=== PATIENT | male | born 1955 | race Caucasian/White ===

== ENCOUNTER → 2016-10-27 12:02 | Outpatient (CLI) | payer BC, MEDICARE ==
[2014-10-28 13:30] VITALS: BMI 28.1
[~2016-10-27 12:02] MED LIST: AMITRIPTYLINE100 MG PO; COUMADIN7.5 MG PO; FLOMAX0.4 MG PO; NEURONTIN600 MG PO; NUCYNTA75 MG PO; PRILOSEC20 MG PO; VESICARE10 MG PO
== END | disposition home or self-care (01) ==
LOC: D.US 12:02
DX: N50.89 Other specified disorders of the male genital organs (principal)

== ENCOUNTER 2017-01-13 06:10 | Day surgery (SDC) | payer BC, MEDICARE ==
[2017-01-12 11:10] LABS: HEMATOCRIT 41.7 % (42.0-54.0); HEMOGLOBIN 14.4 g/dL (13.5-17.5); MCH 32.2 pg (26.0-34.0); MCHC 34.5 g/dL (31.0-37.0); MCV 93.3 fL (80.0-100.0); RBC 4.47 10x6/uL (4.20-6.10); RDW 13.3 % (11.5-14.5); WBC 3.4 10x3/uL (4.8-10.8)
[2017-01-12 11:26] LABS: PROTIME 13.1 SECONDS (11.6-15.0)
[2017-01-12 11:36] LABS: CALCIUM 8.9 mg/dL (8.5-10.1); CARBON DIOXIDE 30.3 mmol/L (21.0-32.0); CREATININE - SERUM 1.2 mg/dL (0.6-1.3); POTASSIUM - SERUM 4.3 mmol/L (3.5-5.1)
[~2017-01-13] VITALS: Ht 172.7 cm; Wt 88.5 kg
[~2017-01-13 06:10] MED LIST changes: +ARICEPT10 MG PO; +GLIMEPIRIDE2 MG PO
[2017-01-13] MEDS ORDERED: GLUCOPHAGE1000 MG PO (09:14)
[2017-01-13 09:15] VITALS: BP 121/83; Ht 172.7 cm; Wt 88.5 kg
--- NOTE | 2017-01-13 13:52 | NUR ---
WHEN BOVIE PAD WAS PULLED AREA WAS PINK RECHECKED IN RR AND PINKNESS WAS BETTER, MIGUEL.
--- NOTE | 2017-01-14 15:49 | OP ---
PATIENT NAME: CATERINA BROWNING MEDICAL RECORD: [id number] :55 LOCATION:[facility] ADMISSION DATE: SURGEON: SYED VALENZUELA MD DATE OF OPERATION: 01/13/2017 SURGEON: Syed Valenzuela MD ANESTHESIA: General anesthesia by Blaze Cartagena CRNA PREOPERATIVE DIAGNOSIS: Right epididymal cyst. PROCEDURE: Excision of right epididymal cyst, excision of right testicular appendix. FINDINGS: Right epididymal cyst about 1 cm in size, large right testicular appendix. SPECIMENS: Right epididymal cyst wall, right appendix testis. BLOOD LOSS: None. CLINICAL HISTORY: This is a 61-year-old male, who noted an enlargement and a palpable mass in the right hemiscrotum. It is tender and bothersome to him. He has had 2 courses of antibiotics and it has not changed the situation. He had a scrotal ultrasound, which showed a large cyst in the right epididymis near the head. This was the region of his tenderness. He would like to have this cyst excised. HE IS ALLERGIC TO ASPIRIN. He was given Ancef 1 gram IV radiology interventional physician to the OR. DESCRIPTION OF PROCEDURE: The patient was placed in supine position. He was given general anesthesia. He was then shaved, prepped and draped. A midline incision about 3 cm long was marked out along the median raphe of the scrotum. On either side of this incision, 0.25% Marcaine with epinephrine was injected for local anesthetic. A #15 blade was then used to cut through the skin and then through dartos fascia. The tunica vaginalis was incised using the Bovie. The testicle was then everted out of the hemiscrotum. We noted the epididymal cyst. There was also a large right testicular appendix, which may twist and have torsion. The testicular appendix was removed by pulling on it with forceps and amputating it at its base. It was sent to pathology in formalin. An Allis clamp was placed on the visible portion of the right epididymal cyst wall. A #15 blade was then used to circumscribe around the base of the cyst to excise that portion of the wall. The base of the cyst was then cauterized completely. The tunica vaginalis of the appendix was reapproximated using simple interrupted 4-0 Vicryl. The tunica vaginalis was also reapproximated using 4-0 Vicryl simple interrupted sutures. The reason for this is to prevent any hydrocele formation. The dartos layer was then reapproximated using simple interrupted 4-0 Vicryl. Finally, the skin was reapproximated using simple interrupted 4-0 Vicryl. Fluffs and mesh panties were given to the patient and he was awakened and brought to the recovery room. TRANSINT:[id number] Voice Confirmation ID: [id number] DOCUMENT ID: [id number] OPERATIVE REPORT [id number] CATERINA BROWNING, SYED Everett MD at 1549 CC: [id number] DICTATION DATE: 01/13/17 1345 QUALITY ASSURANCE ASSESSOR: 01/14/17 0103 [facility] 01/13/17 [place] [id number] [place] [address]
== END 2017-01-13 15:35 | disposition home or self-care (01) ==
LOC: D.OPS 06:10 → D.PAN 09:30 → D.OPS 09:45
PROVIDERS: Anesthesiology
DX: N50.3 Cyst of epididymis (principal); Q55.29 Other congenital malformations of testis and scrotum; Z88.6 Allergy status to analgesic agent

== ENCOUNTER → 2017-11-11 09:05 | Outpatient (CLI) | payer BC, MEDICARE ==
[~2017-11-11] VITALS: Ht 172.7 cm; Wt 87.7 kg
--- NOTE | ~2017-11-11 | OP ---
PATIENT NAME: CATERINA BROWNING MEDICAL RECORD: [id number] :55 LOCATION:D.[facility] ADMISSION DATE: SURGEON: MAISHA GASPAR MD DATE OF OPERATION: 11/11/2017 PROCEDURES: 1. Left heart catheterization. 2. Selective coronary angiography. 3. Left ventriculogram. INDICATION: Chest pain compatible with angina. PROCEDURE IN DETAIL: After informed consent was obtained and after a detailed explanation of risks, benefits as well as alternative therapies, the patient elected to proceed with angiogram and heart catheterization. The right radial area was prepped and draped in normal sterile fashion. Right radial artery was cannulated via modified Seldinger technique with placement of a 5-Anguillan sheath. All catheters exchanged through this sheath. FINDINGS: Left ventriculogram was performed in standard 30-degree LONDONO view, reveals good cardiac wall motion throughout all segments. Overall ejection fraction estimated 60%. SELECTIVE CORONARY ANGIOGRAPHY: Left main, left anterior descending, left circumflex, right coronary artery are all smooth-walled vessels with no angiographic evidence of coronary artery disease. OVERALL IMPRESSION: 1. No angiographic evidence of coronary artery disease. 2. Normal left heart pressures. 3. Normal left ventricular systolic function. Chest pain is noncardiac in etiology. No further cardiac workup needs to be ascertained. TRANSINT:[id number] Voice Confirmation ID: [id number] DOCUMENT ID: [id number] MAISHA GASPAR MD at 1056 CC: [id number] DICTATION DATE: 11/11/17 1357 TURKEY FARMER: 11/11/17 1405 DEP CLI 11/11/17 [place] [id number]
--- NOTE | ~2017-11-11 | HEMODYNAMI ---
PATIENT:CATERINA BROWNING MEDICAL RECORD: [id number] : 55 LOCATION:[facility] ADMISSION DATE: 11/11/17 Generatedon:11/11/201713:58 Patient name: CATERINA BROWNING Patient #: [id number] SSN: D OB: 1955 Date of study: 11/11/2017 Page: Of Hemodynamic Procedure Report Patient Data Patient Demographics Procedure consent was obtained First Name: CATERINA Gender: Male Last Name: NALLELY : 1955 [facility] Initial: MARIO Age: 62 year(s) Patient #: [id number] Race: Unknown Additional ID: [id number] Contact details [address]: [address] [place] [address] State: [place] City: [place] Zip code: [address] Past Medical History Allergies Allergen Reaction Date Comments Reported Aspirin 11/11/2017 Admission Admission Data Admission Date: 11/11/2017 Admission Time: 9:05 Lab Results Lab Result Date: 11/11/2017 Lab Result Time: 0:00 Biochemistry Name Units Result Min Max BUN mg/dl 14 --(--*-)-- 7 18 Creatinine mg/dl 1.2 --(---*)-- 0.6 1.3 CBC Name Units Result Min Max Hemoglobin g/dl 15.7 --(--*-)-- 13.5 17.5 Coagulation Name Units Result Min Max INR units 1 --(-*--)-- 0.85 1.17 Procedure Procedure Types Cath Procedure Diagnostic Procedure LHC LHC w/Coronaries Procedure Description Procedure Date Procedure Date: 11/11/2017 Procedure Start Time: 13:46 Procedure End Time: 13:55 Procedure Staff Name Function Paul Jara MD Performing Physician Julieta Perales RT Scrub Brandon Castillo RT Monitor Tuan Grajeda RN Nurse Procedure Data Cath Procedure Fluoroscopy Diagnostic fluoroscopy Total fluoroscopy Time: 2.5 time: 2.5 min min Diagnostic fluoroscopy Total fluoroscopy dose: 141 dose: 141 mGy mGy Contrast Material Contrast Material Type Amount (ml) Isovue 300 45 Entry Location Entry Primary Successful Side Size Upsize Upsize Entry Closure [place] ccessful Closure Location (Fr) 1 (Fr) 2 (Fr) Remarks Device Remarks Radial Right 6 Fr Mechanical artery Short Compression Estimated blood loss: 10 ml Diagnostic catheters Device Type Used For End Catheter Placement DIAGNOSTIC [place] 110cm 5 Procedure Fr catheter ([id number]) DIAGNOSTIC AR 1 MOD 5Fr Procedure catheter ([id number]) Procedure Complications No complications Procedure Medications Medication Administration Route Dosage Oxygen etCO2 Nasal cannula 2 l/min Heparin Flush Bag added to field 2 bags (1000units/500ml NS) 0.9% NaCl I.V. ml/hr Fentanyl I.V. 100 mcg Versed I.V. 2 mg Fentanyl I.V. 100 mcg Versed I.V. 2 mg Radial Cocktail added to field 1 syringe (Verapomil 2mg/Nitro 400mcg/Heparin 1500units) Radial Cocktail I.A. 1 syringe (Verapomil 2mg/Nitro 400mcg/Heparin 1500units) Hemodynamics Rest HGB: 15.7 (g/dl) Heart Rate: 95 (bpm) Pressure Samples Time Site Value (mmHg) Purpose Heart Use Rate(bpm) 13:49 LV 85/21,29 Snapshot 99 13:49 AO 83/62(71) Snapshot 97 Snapshots Pre Cath Intra NCS Post Cath Vital Signs Time Heart Resp SPO2 etCO2 NIBP (mmHg) Rhythm Pain Sedation Rate (ipm) (%) (mmHg) Status Level (bpm) 13:37:53 95 17 94 0 137/88(110) NSR 0 (11) 10(A) , No pain 13:42:12 88 18 97 32 124/79(99) NSR 0 (11) 10(A) , No pain 13:46:30 90 16 91 34.2 118/78(89) NSR 0 (11) 10(A) , No pain 13:50:44 97 17 85 34.2 97/65(76) NSR 0 (11) 9(A) , No pain 13:54:56 98 17 89 32 110/66(80) NSR 0 (11) 9(A) , No pain Medications Time Medication Route Dose Verified Delivered Reason Notes Effectiveness by by 13:37:26 Oxygen etCO2 2 l/min Paul Grajeda RN physician cannula 13:37:34 Heparin Flush added 2 bags Paul Dickerson used for Bag to Marek Grajeda RN procedure (1000units/500ml field NS) 13:37:45 0.9% NaCl I.V. ml/hr Paul Dickerson Per Marek Grajeda RN physician 13:45:22 Fentanyl I.V. 100 mcg Paul Dickerson for sedation Marek Grajeda RN 13:45:28 Versed I.V. 2 mg Paul Dickerson for sedation Marek Grajeda RN 13:47:16 Fentanyl I.V. 100 mcg Paul Dickerson for sedation Marek Grajeda RN 13:47:22 Versed I.V. 2 mg Paul Dickerson for sedation Marek Grajeda RN 13:47:33 Radial Cocktail added 1 Paul Dickerson used for (Verapomil to syringe Marek Grajeda RN procedure 2mg/Nitro field 400mcg/Heparin 1500units) 13:47:39 Radial Cocktail I.A. 1 Paul Paul for (Verapomil syringe Marek Jara MD vasodilation 2mg/Nitro 400mcg/Heparin 1500units) Procedure Log Time Note 13:18:33 Tuan Grajeda RN sent for patient. Start room use. 13:18:35 Time tracking: Regular hours 13:18:38 Plan of Care:Hemodynamics will remain stable., Cardiac rhythm will remain stable., Comfort level will be maintained., Respiratory function will remain adequate., Patient/ family verbilizes understanding of procedure., Procedure tolerated without complication., Recovers from procedure without complications.. 13:18:39 Signed procedure consent form obtained from patient. 13:27:07 H&P Date Dictated: 11/07/2017 Within 30 days and on chart., H&P Addendum completed by physician on day of procedure. (MUST COMPLETE FOR ALL OUTPATIENTS). 13:27:13 Patient allergic to Aspirin 13:28:02 Lab Result : BUN 14 mg/dl 13:28:02 Lab Result : Creatinine 1.2 mg/dl 13:28:02 Lab Result : Hemoglobin 15.7 g/dl 13:28:02 Lab Result : INR 1 units 13:30:10 Patient received from Pre/Post Procedure Room to [facility] 3 Alert and oriented. Tansferred to table in Supine position. 13:30:11 Warm blankets applied, and marleni hugger turned on for patient comfort. 13:30:11 Correct patient and procedure confirmed by team. 13:30:12 ECG and BP/O2 sat monitors applied to patient. 13:36:45 Vital chart was started 13:37:26 Oxygen 2 l/min etCO2 Nasal cannula was administered by Tuan Grajeda RN; Per physician; 13:37:34 Heparin Flush Bag (1000units/500ml NS) 2 bags added to field was administered by Tuan Grajeda RN; used for procedure; 13:37:45 0.9% NaCl ml/hr I.V. was administered by Tuan Grajeda RN; Per physician; 13:41:54 Baseline sample Acquired. 13:41:58 Rhythm: sinus rhythm 13:41:59 Full Disclosure recording started 13:42:01 Pre-procedure instructions explained to patient. 13:42:01 Pre-op teaching completed and patient verbalized understanding. 13:42:05 Family in patients room. 13:42:07 Patient NPO since Midnight. 13:42:09 Is the patient allergic to Iodine/contrast media? No. 13:42:57 Is patient on blood thinner?Yes 13:43:20 Last dose of Coumadin was over a week ago per patient. 13:43:21 Patient diabetic? No. 13:43:24 Previous problem with sedation/anesthesia? No ? 13:43:25 Snore? Yes 13:43:26 Sleep apnea? No 13:43:27 Deviated septum? No 13:43:27 Opens mouth fully? Yes 13:43:28 Sticks out tongue? Yes 13:43:30 Airway obstruction? No ? 13:43:31 Dentures? No ? 13:43:35 Pre procedure: right dorsailis pedis pulse 1+ Palpable, but thready & weak; easily obliterated 13:43:37 Modified Willem's test Ulnar < 7 seconds 13:43:39 Patient pain scale 0/10 ?. 13:43:42 IV patent on arrival in left forearm with 0.9% NaCl at O. 13:43:43 Lab results completed and on chart. 13:43:46 Right Radial & Right Groin area was prepped with chlora-prep and draped in sterile fashion 13:43:47 Alarms reviewed by RToni N. 13:43:48 Sharps counted by scrub and verified by R.N. 13:43:49 --------ALL STOP TIME OUT------ 13:43:49 Final Timeout: patient, procedure, and site verified with staff and physician. All members of the team are in agreement. 13:43:51 Right Radial & Right Groin site verified by team. 13:43:54 Physical assessment completed. ASA score P 2 - A patient with mild systemic disease as per Paul Jara MD. 13:43:58 Sedation plan: IV Moderate Sedation Medication:Versed, Fentanyl 13:45:22 Fentanyl 100 mcg I.V. was administered by Tuan Grajeda RN; for sedation; 13:45:28 Versed 2 mg I.V. was administered by Tuan Grajeda RN; for sedation; 13:45:49 Use device set Radial Dx or PCI 13:45:52 ACIST Manifold (55589) opened to sterile field. 13:45:53 Tegaderm 4 x 4 (1626W) opened to sterile field. 13:45:53 ACIST Hand Control (59236) opened to sterile field. 13:45:55 ACIST Syringe (61611) opened to sterile field. 13:45:55 Medline Cath Pack ([id number]) opened to sterile field. 13:45:56 Bag Decanter (2002) opened to sterile field. 13:45:57 DIAGNOSTIC WIRE .035 260cm J wire (766912) opened to sterile field. 13:46:06 SHEATH 6Fr Prelude Radial ([id number]) opened to sterile field. 13:46:15 Procedure started. 13:46:20 Local anesthetic to right radial artery with Lidocaine 2% by Paul Jara MD.INITIAL ACCESS ONLY 13:47:16 Fentanyl 100 mcg I.V. was administered by Tuan Grajeda RN; for sedation; 13:47:22 Versed 2 mg I.V. was administered by Tuan Grajeda RN; for sedation; 13:47:33 Radial Cocktail (Verapomil 2mg/Nitro 400mcg/Heparin 1500units) 1 syringe added to field was administered by Tuan Grajeda RN; used for procedure; 13:47:39 Radial Cocktail (Verapomil 2mg/Nitro 400mcg/Heparin 1500units) 1 syringe I.A. was administered by Paul Jara MD; for vasodilation; 13:48:30 A 6 Fr Short sheath was inserted into the Right Radial artery 13:48:36 A DIAGNOSTIC [place] 110cm 5 Fr catheter ([id number]) was advanced over the wire and used for Procedure. 13:49:24 LV angiography performed. 13:49:25 LV gram done using LONDONO 13:49:30 EF : 55 % 13:49:34 Injector settings: Ml/sec: 7, Volume: 15, 13:50:39 LCA angiography performed. 13:51:29 Catheter exchanged over wire. 13:52:33 A DIAGNOSTIC AR 1 MOD 5Fr catheter ([id number]) was advanced over the wire and used for Procedure. 13:53:02 RCA angiography performed. 13:53:04 Catheter removed. 13:53:17 TR BAND Standard ([id number]) opened to sterile field. 13:53:26 Sheath removed intact; hemostasis achieved with Mechanical Compression to the Right Radial artery. 13:53:28 Procedure ended.(Physican Out) 13:53:42 Fluoroscopy time 02.50 minutes. 13:53:46 Fluoroscopy dose: 141 mGy 13:53:46 Flurop Dose total: 141 13:53:50 Contrast amount:Isovue 300 45ml. 13:53:52 Sharps counted by scrub and verified by R.N. 13:53:55 TR band inflated with 10cc of air. 13:54:02 Insertion/operative site no bleeding no hematoma. 13:54:03 Post Procedure Pulses reassessed and unchanged 13:54:06 Post-procedure physical assessment completed. ASA score P 2 - A patient with mild systemic disease as per Paul Jara MD. 13:54:12 Post procedure rhythm: unchanged. 13:54:14 Estimated blood loss: 10 ml 13:54:16 Post procedure instruction explained to patient.Patient verbalizes understanding. 13:54:16 Patient needs reinforcement of post procedure teaching. 13:54:17 Procedure and supply charges have been captured, reviewed, submitted and are correct. 13:55:29 Procedure Complication : No complications 13:55:31 Vital chart was stopped 13:55:32 See physician's report for complete and final results. 13:55:36 Report given to Pre/Post Procedure Room. 13:55:40 Patient transfered to Pre/Post Procedure Room with Stretcher. 13:55:42 Procedure ended. 13:55:42 Full Disclosure recording stopped 13:58:35 End room use (Document Last) Device Usage Item Name Manufacture Quantity Catalog Number Hospital Part Current M inimal Lot# / Charge Number Stock Stock Serial# Code ACIST Manifold Acist 1 67294 [id number] 766262 363468 5 (02126) [employer] Inc Tegaderm 4 x 4 3M 1 1626W 043539 913523 464338 5 (1626W) ACIST Hand Acist 1 33521 296304 432270 957888 5 Control (92611) [employer] Inc ACIST Syringe Acist 1 12643 043575 755036 360348 2 0 (24022) [employer] Systems Inc Medline Cath Cardinal 1 [id number] 205539 58866 498325 5 Pack Health ([id number]) Bag Decanter Microtek 1 2001S 263718 63353 749549 5 (2001S) Medical Inc. DIAGNOSTIC WIRE St Yonathan 1 928189 301049 867807 374109 3 0 .035 260cm J wire (670202) SHEATH 6Fr Merit 1 [id number] 709992 505278 583411 5 Prelude Radial Medical ([id number]) DIAGNOSTIC Terumo 1 40-8823 347073 150574 272632 5 [place] 110cm 5 Fr catheter (925813) DIAGNOSTIC AR 1 Cardinal 1 [id number] 786117 377842 805450 1 5 MOD 5Fr Health catheter (806280F) TR BAND Terumo 1 [id number] 715972 991293 464436 4 0 Standard (FLY87ANG) Signature Audit [place] Stage Time Signature Unsigned Intra-Procedure 11/11/2017 Brandon Castillo 1:58:55 PM RT(R) Signatures Monitor : Brandon Castillo RT Signature : Date : Time : [facility] [address] [place] [address]
[~2017-11-11 09:05] MED LIST changes: +GLUCOPHAGE1000 MG PO
[2017-11-11 10:21] LABS: BASOPHILS 0.2 % (0-2); EOSINOPHILS 0 % (0-7); HEMATOCRIT 45.3 % (42.0-54.0); HEMOGLOBIN 15.7 g/dL (13.5-17.5); IMMATURE GRANULOCYTES 0.2 % (0-5); LYMPHOCYTES 29.7 % (15-50); MCH 32.6 pg (26.0-34.0); MCHC 34.7 g/dL (31.0-37.0); MCV 94.2 fL (80.0-100.0); MEAN PLATELET VOLUME 10.4 fL (7.4-10.4); MONOCYTES 9.3 % (2-11); NEUTROPHILS 60.6 % (40-80); PLATELET COUNT 132 10x3/uL (130-400); RBC 4.81 10x6/uL (4.20-6.10); RDW 13.3 % (11.5-14.5); WBC 4.3 10x3/uL (4.8-10.8)
[2017-11-11 10:29] LABS: ANION GAP 10.9 mmol/L (8-16); CALCIUM 8.9 mg/dL (8.5-10.1); CARBON DIOXIDE 30.5 mmol/L (21.0-32.0); CREATININE - SERUM 1.2 mg/dL (0.6-1.3); POTASSIUM - SERUM 4.4 mmol/L (3.5-5.1)
[2017-11-11 10:30] LABS: INR 1.01 (0.85-1.17); PROTIME 12.9 SECONDS (11.6-15.0)
[2017-11-11 10:39] VITALS: BP 126/79; Ht 172.7 cm; Wt 87.7 kg
== END | disposition home or self-care (01) ==
LOC: D.CATH 09:05
PROVIDERS: Internal Medicine Interventional Cardiology
DX: R07.89 Other chest pain (principal); Z01.82 Encounter for allergy testing

== ENCOUNTER 2017-12-21 13:55 | Emergency (ER) | payer BC, MEDICARE ==
[2017-11-11 10:39] VITALS: BMI 29.4
== END 2017-12-21 16:27 | disposition home or self-care (01) ==
LOC: D.ER 13:55
DX: S59.902A Unspecified injury of left elbow, initial encounter (principal); W19.XXXA Unspecified fall, initial encounter; Y93.89 Activity, other specified; Y92.019 Unspecified place in single-family (private) house as the place of occurrence of the external cause; E11.9 Type 2 diabetes mellitus without complications; K21.9 Gastro-esophageal reflux disease without esophagitis

== ENCOUNTER 2018-06-06 06:40 | Day surgery (SDC) | payer BC, MEDICARE ==
[2018-06-05 10:50] LABS: HEMATOCRIT 41.3 % (42.0-54.0); HEMOGLOBIN 14.5 g/dL (13.5-17.5); MCH 32.3 pg (26.0-34.0); MCHC 35.1 g/dL (31.0-37.0); MEAN PLATELET VOLUME 10.3 fL (7.4-10.4); RBC 4.49 10x6/uL (4.20-6.10); RDW 13.5 % (11.5-14.5); WBC 4.7 10x3/uL (4.8-10.8)
[2018-06-05 11:01] LABS: ANION GAP 10.3 mmol/L (8-16); CALCIUM 9.1 mg/dL (8.5-10.1); CARBON DIOXIDE 29.8 mmol/L (21.0-32.0); CREATININE - SERUM 1.1 mg/dL (0.6-1.3); POTASSIUM - SERUM 4.1 mmol/L (3.5-5.1)
[2018-06-05 11:19] LABS: INR 1.57 (0.85-1.17); PROTIME 18.2 SECONDS (11.6-15.0)
[~2018-06-06] VITALS: Ht 172.7 cm; Wt 83.9 kg
--- NOTE | ~2018-06-06 | OP ---
PATIENT NAME: CATERINA BROWNING MEDICAL RECORD: [id number] :55 [facility] DATE: SURGEON: CADEN VALENZUELA MD DATE OF OPERATION: 06/06/2018 SURGEON: Caden Valenzuela MD ANESTHESIA: TIVA by Trena Hankins CRNA. PREOPERATIVE DIAGNOSIS: Obstructive benign prostatic hypertrophy. PROCEDURE: Cystoscopy, UroLift procedure with placement of 4 units. FINDINGS: Bilateral lateral lobe hyperplasia with a short prostatic urethra. ESTIMATED BLOOD LOSS: None. CLINICAL HISTORY: This is a 63-year-old male, who has issues with voiding. He has hesitancy and a slow urinary flow. He has episodes of urge incontinence. On digital rectal examination, prostate size is estimated at 50 grams. He has been on tamsulosin for more than a year and he still has issues with voiding. I also gave him finasteride and this really did not change his voiding symptoms at all. He wished to proceed with the UroLift procedure. His preoperative IPSS score is 15 and his quality of life score is 5. He is allergic to ASPIRIN. He was given Ancef 2 grams IV securities consultant to the OR. DESCRIPTION OF PROCEDURE: The patient was given IV sedation. He was placed in dorsal lithotomy position and prepped and draped. Lidocaine jelly was inserted into the urethra. We then entered the urethra with a 20-Togolese cystoscope. The penile urethra shows no signs of obstruction or stricture. Prostatic urethra shows large overhanging lateral and anterior lobes. Going into the bladder, he has single ureteral orifices bilaterally and no bladder tumors were seen. Because of the short prostatic urethra, we placed 2 units, 1 on each side just proximal to the verumontanum. This opened up some of the channel, but there was still anterior material overhanging and causing occlusion. Therefore, we placed 2 more units more anterior to the previous ones at the verumontanum level. This is the box technique. At this point, he had a very wide open prostatic urethra. Some fluid was left in the bladder to give him a voiding trial today. He will be going home today and I will see him in followup in 3 weeks' time. TRANSINT:[id number] Voice Confirmation ID: [id number] DOCUMENT ID: [id number] CADEN VALENZUELA MD at 1050 CC: [id number] DICTATION DATE: 06/06/18 1013 SNORKELLING INSTRUCTOR: 06/06/18 1048 REG [facility] [address] [facility]
[~2018-06-06 06:40] MED LIST changes: +AMITRIPTYLINE100 MG; -AMITRIPTYLINE100 MG PO; +COUMADIN5 MG PO; +PROSCAR5 MG PO
[2018-06-06 08:31] VITALS: BP 132/81; Ht 172.7 cm; Wt 83.9 kg
[2018-06-06 09:05] LABS: APTT 34.6 SECONDS (22.8-39.4); INR 1.61 (0.85-1.17); PROTIME 18.6 SECONDS (11.6-15.0)
== END 2018-06-06 11:43 | disposition home or self-care (01) ==
LOC: D.OPS 06:40 → D.PAN 09:00 → D.OPS 09:00
PROVIDERS: Anesthesiology
DX: N40.1 Benign prostatic hyperplasia with lower urinary tract symptoms (principal); N39.41 Urge incontinence; N13.8 Other obstructive and reflux uropathy; N36.8 Other specified disorders of urethra; Z88.6 Allergy status to analgesic agent; Z01.812 Encounter for preprocedural laboratory examination

== ENCOUNTER 2018-07-20 17:44 | Observation (INO) | payer BC, MEDICARE ==
[~2018-07-20] VITALS: Ht 172.7 cm; Wt 90.5 kg
--- NOTE | ~2018-07-20 | MORECARE ---
CASE MANAGEMENT DISCHARGE SUMMARY PATIENT: CATERINA BROWNING UNIT: [id number] ADM DATE: 07/20/18 AGE: 63 : 55 SEX: M ROOM/BED: D.2101 AUTHOR: PIETER SCHUMACHER PHYSICIAN: REFERRING PHYSICIAN: KIM URIBE DO DATE OF SERVICE: 07/24/18 Discharge Plan Patient Name: CATERINA BROWNING [facility] [facility] 1955 Planned Disposition: Home Anticipated Discharge Date: 07/22/18 Discharge Date: 07/22/2018 Expected LOS: 2 Initial Reviewer: [email or web address] Initial Review Date: 07/24/2018 Generated: 07/24/18 9:21 am Patient Name: CATERINA BROWNING Page [phone] at 0821 All edits/amendments must be made on the electronic document DICTATION DATE: 07/24/18820 CUSTOMS ENTRY WRITER: BRANDON 07/24/18820 RPT#: [id number] DC DATE:07/22/18 STATUS: DIS IN [facility] [address] [facility] [place] [address] END OF REPORT
--- NOTE | ~2018-07-20 | EC ---
PATIENT:CATERINA BROWNING DATE OF SERVICE: 07/20/18 SEX: M MEDICAL RECORD: [id number] DATE OF : 55 LOCATION:D.M2 D.210 AGE OF PATIENT: 63 ADMISSION DATE: 07/20/18 REFERRING PHYSICIAN: INTERPRETING PHYSICIAN: JANY GORDON MD ECHOCARDIOGRAM REPORT ECHO CHARGES 4 ECHO COMPLETE Date: 07/21/18 CLINICAL DIAGNOSIS: TIA ECHOCARDIOGRAPHIC MEASUREMENTS (adult normal given) AC root (d.<3.7cm) 3.1 cm LV Septum d (<1.2 cm> 1.2 cm Valve Excursion 1.8 cm LV Septum (systole) 1.4 cm Left Atria (s.<4.0cm> 3.3 cm LVPW d(<1.2cm) 11 cm RV (d.<2.3cm) 2.6 cm LVPW (sytole) 1.4 cm LV diastole(<5.6CM) 5.3 cm MV E-F(>70mm/sec) cm LV systole 3.8 cm LVOT Diameter 1.4 cm MV exc.(>10mm) cm Est.ejection fraction (50-75%) % DOPPLER: LVIT cm/sec A 52.0 cm/sec E 5.3 cm/sec LA cm/sec RVSP 26.70mmHg LVOT 85 cm/sec AOP1/2T m/s Asc. Ao 113 cm/sec RVOT 69 cm/sec RA cm/sec PA 92 cm/sec AV Gradient Peak 5.09 mmHg AV Mean 2.73 mmHg AV Area 2.0 cm MV Gradient Peak 2.37 mmHg MV Mean 1.61 mmHg MV Area cm COMMENTS: Clother In: Dania RAI Vp Software Support: 3 Dr. Pan TAPE# PACS Pericardial Effusion N DATE OF SERVICE: Adequate 2-D, color flow and spectral Doppler, and M-mode. No LVH. LV internal dimensions are normal. Wall motion is normal. EF is greater than or equal to 55%. Aortic valve is tricuspid. No evidence of stenosis on Doppler interrogation. Left atrium is normal. Mitral valve shows no prolapse. Trace MR. Right-sided chambers are grossly normal. Trace TR. TRANSINT:[id number] Voice Confirmation ID: [id number] DOCUMENT ID: [id number] ECHOCARDIOGRAM REPORT [id number] BROWNING,DIGGS JANY MARTIN MD CC: [id number] DICTATION DATE: 07/21/18 1400 REPAIRER ENGINE PRODUCTION: 07/21/18 1620 ADM IN [place] [address] [place] [id number]
[2018-07-20 19:06] LABS: APTT 33.6 SECONDS (22.8-39.4); INR 1.58 (0.85-1.17); PROTIME 18.2 SECONDS (11.6-15.0)
[2018-07-20 19:12] LABS: ALBUMIN 3.5 g/dL (3.4-5.0); ALKALINE PHOSPHATASE 74 U/L (46-116); ALT (SGPT) 29 U/L (10-68); BASOPHILS 0.3 % (0-2); BILIRUBIN - TOTAL 0.97 mg/dL (0.2-1.3); CALC OSMOLALITY 283 mosm/kg (275-300); CALCIUM 8.1 mg/dL (8.5-10.1); CARBON DIOXIDE 28.6 mmol/L (21.0-32.0); CHLORIDE - SERUM 100 mmol/L (98-107); CREATININE - SERUM 1.4 mg/dL (0.6-1.3); EOSINOPHILS 0 % (0-7); GLUCOSE 139 mg/dL (74-106); HEMATOCRIT 42.6 % (42.0-54.0); HEMOGLOBIN 14.9 g/dL (13.5-17.5); IMMATURE GRANULOCYTES 0.3 % (0-5); LYMPHOCYTES 22.3 % (15-50); MCH 32.3 pg (26.0-34.0); MCV 92.4 fL (80.0-100.0); MEAN PLATELET VOLUME 10.1 fL (7.4-10.4); MONOCYTES 11.7 % (2-11); NEUTROPHILS 65.4 % (40-80); PLATELET COUNT 131 10x3/uL (130-400); POTASSIUM - SERUM 3.8 mmol/L (3.5-5.1); PROTEIN - SERUM 7.3 g/dL (6.4-8.2); RBC 4.61 10x6/uL (4.20-6.10); RDW 14.1 % (11.5-14.5); SODIUM 140 mmol/L (136-145); UREA NITROGEN 22 mg/dL (7-18); WBC 3.9 10x3/uL (4.8-10.8); eGFR NON AFRICAN AMERICAN 54 mL/min (90-120)
[2018-07-20 19:23] VITALS: BP 120/75
[2018-07-20 19:24] LABS: CKMB 5.2 U/L (0.0-3.6); CREATINE KINASE 1390 UL (21-232); MAGNESIUM - SERUM 1.9 mg/dL (1.8-2.4); THYROID STIMULATING HORMONE 0.54 uIU/mL (0.36-3.74); TROPONIN-I < 0.017 ng/mL (0.000-0.060)
[2018-07-20 20:00] VITALS: BP 103/71
[2018-07-20 20:17] LABS: APPEARANCE CLEAR (CLEAR); BILIRUBIN NEGATIVE (NEGATIVE); COLOR YELLOW (YELLOW); GLUCOSE 100 mg/dL (NEGATIVE); KETONE NEGATIVE (NEGATIVE); NITRITE NEGATIVE (NEGATIVE); PROTEIN TRACE mg/dL (NEGATIVE); UROBILINOGEN NORMAL (NORMAL)
[2018-07-20 20:20] LABS: AMORPHOUS SEDIMENT <1+ /lpf (NONE SEEN); BACTERIA FEW /hpf (NONE SEEN); EPITHELIAL CELLS OCC /hpf (0-5); RED CELLS - URINE OCC /hpf (0-5)
[2018-07-20 21:21] VITALS: BP 102/75
[2018-07-21] VITALS (8 sets, daily range): BP systolic 103–116; BP diastolic 62–71; Ht 172.7 cm; Wt 90.5 kg
[2018-07-21 04:01] LABS: BASOPHILS 0.4 % (0-2); EOSINOPHILS 0 % (0-7); HEMATOCRIT 37.5 % (42.0-54.0); HEMOGLOBIN 12.9 g/dL (13.5-17.5); IMMATURE GRANULOCYTES 0.4 % (0-5); LYMPHOCYTES 22.8 % (15-50); MCH 31.5 pg (26.0-34.0); MCHC 34.4 g/dL (31.0-37.0); MCV 91.7 fL (80.0-100.0); MEAN PLATELET VOLUME 10.1 fL (7.4-10.4); MONOCYTES 11.8 % (2-11); NEUTROPHILS 64.6 % (40-80); PLATELET COUNT 123 10x3/uL (130-400); RBC 4.09 10x6/uL (4.20-6.10); RDW 13.8 % (11.5-14.5)
[2018-07-21 04:02] LABS: WBC 5.7 10x3/uL (4.8-10.8)
[2018-07-21 04:22] LABS: ALBUMIN 2.8 g/dL (3.4-5.0); ANION GAP 11.8 mmol/L (8-16); BILIRUBIN - TOTAL 0.71 mg/dL (0.2-1.3); CALCIUM 7.5 mg/dL (8.5-10.1); CARBON DIOXIDE 28.2 mmol/L (21.0-32.0); CREATININE - SERUM 1.2 mg/dL (0.6-1.3); PROTEIN - SERUM 6.1 g/dL (6.4-8.2)
[2018-07-22 03:45] VITALS: BP 102/65
[2018-07-22 06:41] LABS: BASOPHILS 0.4 % (0-2); EOSINOPHILS 0 % (0-7); HEMATOCRIT 39.1 % (42.0-54.0); HEMOGLOBIN 13.2 g/dL (13.5-17.5); IMMATURE GRANULOCYTES 0.2 % (0-5); LYMPHOCYTES 32.3 % (15-50); MCH 31.5 pg (26.0-34.0); MCHC 33.8 g/dL (31.0-37.0); MCV 93.3 fL (80.0-100.0); MEAN PLATELET VOLUME 10.3 fL (7.4-10.4); MONOCYTES 11.6 % (2-11); NEUTROPHILS 55.5 % (40-80); PLATELET COUNT 121 10x3/uL (130-400); RBC 4.19 10x6/uL (4.20-6.10); WBC 4.5 10x3/uL (4.8-10.8)
[2018-07-22 07:26] LABS: ALBUMIN 2.9 g/dL (3.4-5.0); ALKALINE PHOSPHATASE 64 U/L (46-116); ALT (SGPT) 27 U/L (10-68); BILIRUBIN - TOTAL 0.64 mg/dL (0.2-1.3); C-REACTIVE PROTEIN 6.1 mg/dL (0.0-0.9); CALC OSMOLALITY 280 mosm/kg (275-300); CALCIUM 7.9 mg/dL (8.5-10.1); CARBON DIOXIDE 30.8 mmol/L (21.0-32.0); CHLORIDE - SERUM 106 mmol/L (98-107); CREATININE - SERUM 0.9 mg/dL (0.6-1.3); GLUCOSE 87 mg/dL (74-106); MAGNESIUM - SERUM 1.9 mg/dL (1.8-2.4); PHOSPHOROUS 2.5 mg/dL (2.5-4.9); POTASSIUM - SERUM 4.2 mmol/L (3.5-5.1); PROTEIN - SERUM 6.4 g/dL (6.4-8.2); SODIUM 142 mmol/L (136-145); T4 THYROXIN - FREE 1.12 ng/dL (0.76-1.46); THYROID STIMULATING HORMONE 1.73 uIU/mL (0.36-3.74); UREA NITROGEN 11 mg/dL (7-18); eGFR NON AFRICAN AMERICAN > 90 mL/min (90-120)
[2018-07-22 08:26] VITALS: BP 130/72
[2018-07-22 09:07] VITALS: BP 130/72
[2018-07-22 11:11] VITALS: BP 119/80
[2018-07-22 11:21] VITALS: BP 119/80
[2018-07-22 11:22] VITALS: BP 99/67
== END 2018-07-22 12:38 | disposition home or self-care (01) ==
LOC: D.ER 17:44 → D.M2 21:52 → D.EDHOLD 21:52 → OBSVTIME 21:52 → D.M2 22:41
PROVIDERS: Family Medicine
DX: G45.9 Transient cerebral ischemic attack, unspecified (principal); M47.812 Spondylosis without myelopathy or radiculopathy, cervical region; D68.2 Hereditary deficiency of other clotting factors; M79.7 Fibromyalgia; E11.9 Type 2 diabetes mellitus without complications; I95.1 Orthostatic hypotension; N28.9 Disorder of kidney and ureter, unspecified

== ENCOUNTER → 2018-08-11 19:07 | Outpatient (CLI) | payer BC, MEDICARE ==
[2018-07-21 11:58] VITALS: BMI 28.1
== END | disposition home or self-care (01) ==
LOC: D.LABREF 19:07
DX: D72.829 Elevated white blood cell count, unspecified (principal); R31.9 Hematuria, unspecified

== ENCOUNTER 2018-08-15 07:56 | Emergency (ER) | payer BC, MEDICARE ==
[~2018-08-15] VITALS: Ht 172.7 cm; Wt 84.1 kg
[2018-08-15 08:01] VITALS: Ht 172.7 cm; Wt 84.1 kg
[2018-08-15 08:16] LABS: BASOPHILS 0.4 % (0-2); EOSINOPHILS 0 % (0-7); HEMATOCRIT 42.3 % (42.0-54.0); HEMOGLOBIN 14.7 g/dL (13.5-17.5); IMMATURE GRANULOCYTES 0.2 % (0-5); LYMPHOCYTES 34.7 % (15-50); MCH 32.2 pg (26.0-34.0); MCHC 34.8 g/dL (31.0-37.0); MCV 92.6 fL (80.0-100.0); MEAN PLATELET VOLUME 10.1 fL (7.4-10.4); MONOCYTES 9.9 % (2-11); NEUTROPHILS 54.8 % (40-80); RBC 4.57 10x6/uL (4.20-6.10); RDW 13.5 % (11.5-14.5); WBC 5.1 10x3/uL (4.8-10.8)
[2018-08-15 08:19] LABS: PLATELET COUNT 146 10x3/uL (130-400)
[2018-08-15 08:27] LABS: APTT 54.8 SECONDS (22.8-39.4); INR 3.76 (0.85-1.17); PROTIME 36.3 SECONDS (11.6-15.0)
[2018-08-15 09:21] LABS: ALBUMIN 3.3 g/dL (3.4-5.0); ALKALINE PHOSPHATASE 69 U/L (46-116); ALT (SGPT) 27 U/L (10-68); BILIRUBIN - TOTAL 0.34 mg/dL (0.2-1.3); CALC OSMOLALITY 285 mosm/kg (275-300); CALCIUM 8.5 mg/dL (8.5-10.1); CARBON DIOXIDE 30.3 mmol/L (21.0-32.0); CHLORIDE - SERUM 105 mmol/L (98-107); CREATININE - SERUM 1.1 mg/dL (0.6-1.3); GLUCOSE 106 mg/dL (74-106); PROTEIN - SERUM 6.6 g/dL (6.4-8.2); SODIUM 144 mmol/L (136-145); UREA NITROGEN 11 mg/dL (7-18); eGFR NON AFRICAN AMERICAN 72 mL/min (90-120)
[2018-08-15 09:34] LABS: CKMB 0.5 U/L (0.0-3.6); CREATINE KINASE 51 UL (21-232); MAGNESIUM - SERUM 1.7 mg/dL (1.8-2.4); THYROID STIMULATING HORMONE 1.39 uIU/mL (0.36-3.74); TROPONIN-I < 0.017 ng/mL (0.000-0.060)
[2018-08-15 11:06] VITALS: BP 136/71
== END 2018-08-15 11:20 | disposition home or self-care (01) ==
LOC: D.ER 07:56
PROVIDERS: Family Medicine
DX: G45.9 Transient cerebral ischemic attack, unspecified (principal); R07.9 Chest pain, unspecified; M25.512 Pain in left shoulder

== ENCOUNTER 2018-10-15 18:58 | Emergency (ER) | payer BC, MEDICARE ==
[~2018-10-15] VITALS: Ht 172.7 cm; Wt 83.9 kg
[2018-10-15 19:27] VITALS: Ht 172.7 cm; Wt 83.9 kg
[2018-10-15 20:22] LABS: BASOPHILS 0.3 % (0-2); EOSINOPHILS 0 % (0-7); HEMATOCRIT 40.1 % (42.0-54.0); HEMOGLOBIN 13.8 g/dL (13.5-17.5); IMMATURE GRANULOCYTES 0.3 % (0-5); LYMPHOCYTES 20.1 % (15-50); MCHC 34.4 g/dL (31.0-37.0); MONOCYTES 8.2 % (2-11); NEUTROPHILS 71.1 % (40-80); PLATELET COUNT 148 10x3/uL (130-400); RBC 4.31 10x6/uL (4.20-6.10); RDW 13.5 % (11.5-14.5); WBC 3.6 10x3/uL (4.8-10.8)
[2018-10-15 20:32] LABS: APTT 58.8 SECONDS (22.8-39.4); INR 3.81 (0.85-1.17); PROTIME 36.8 SECONDS (11.6-15.0)
[2018-10-15 20:36] LABS: ALBUMIN 3.5 g/dL (3.4-5.0); ALKALINE PHOSPHATASE 93 U/L (46-116); ALT (SGPT) 27 U/L (10-68); BILIRUBIN - TOTAL 0.26 mg/dL (0.2-1.3); CALC OSMOLALITY 285 mosm/kg (275-300); CARBON DIOXIDE 27.6 mmol/L (21.0-32.0); CHLORIDE - SERUM 103 mmol/L (98-107); CREATININE - SERUM 1.2 mg/dL (0.6-1.3); POTASSIUM - SERUM 4.7 mmol/L (3.5-5.1); PROTEIN - SERUM 7.3 g/dL (6.4-8.2); SODIUM 139 mmol/L (136-145); UREA NITROGEN 10 mg/dL (7-18); eGFR NON AFRICAN AMERICAN 65 mL/min (90-120)
[2018-10-15 20:39] LABS: GLUCOSE 264 mg/dL (74-106)
[2018-10-15 20:46] LABS: CKMB 0.5 U/L (0.0-3.6)
[2018-10-15 22:32] VITALS: BP 133/95
== END 2018-10-15 22:34 | disposition home or self-care (01) ==
LOC: D.ER 18:58
PROVIDERS: Emergency Medicine
DX: S09.90XA Unspecified injury of head, initial encounter (principal); W18.30XA Fall on same level, unspecified, initial encounter; Y93.89 Activity, other specified; Y92.019 Unspecified place in single-family (private) house as the place of occurrence of the external cause; Z79.01 Long term (current) use of anticoagulants; G44.309 Post-traumatic headache, unspecified, not intractable

== ENCOUNTER → 2018-10-20 11:36 | Outpatient (CLI) | payer BC, MEDICARE ==
[2018-10-15 19:27] VITALS: BMI 28.1
== END | disposition home or self-care (01) ==
LOC: D.CT 11:30
PROVIDERS: ATTEND Family Medicine
DX: S09.90XA Unspecified injury of head, initial encounter (principal); X58.XXXA Exposure to other specified factors, initial encounter

== ENCOUNTER 2018-11-20 06:31 | Inpatient (IN) | payer BC, MEDICARE ==
[~2018-11-20] VITALS: Ht 172.7 cm; Wt 83.1 kg
[2018-11-20] VITALS (8 sets, daily range): BP systolic 120–150; BP diastolic 77–89; BMI 28.0
[2018-11-20 07:28] LABS: BASOPHILS 0.2 % (0-2); EOSINOPHILS 0 % (0-7); HEMATOCRIT 39.6 % (42.0-54.0); HEMOGLOBIN 13.9 g/dL (13.5-17.5); IMMATURE GRANULOCYTES 0.2 % (0-5); LYMPHOCYTES 23.4 % (15-50); MCH 31.9 pg (26.0-34.0); MCHC 35.1 g/dL (31.0-37.0); MCV 90.8 fL (80.0-100.0); MEAN PLATELET VOLUME 10.3 fL (7.4-10.4); MONOCYTES 7.8 % (2-11); NEUTROPHILS 68.4 % (40-80); PLATELET COUNT 137 10x3/uL (130-400); RBC 4.36 10x6/uL (4.20-6.10); RDW 13.4 % (11.5-14.5); WBC 4.8 10x3/uL (4.8-10.8)
[2018-11-20 07:37] LABS: APTT 46.3 SECONDS (22.8-39.4); INR 3.41 (0.85-1.17); PROTIME 33.6 SECONDS (11.6-15.0)
[2018-11-20 07:42] LABS: ALBUMIN 3.5 g/dL (3.4-5.0); ALKALINE PHOSPHATASE 60 U/L (46-116); ALT (SGPT) 37 U/L (10-68); BILIRUBIN - TOTAL 0.37 mg/dL (0.2-1.3); CALC OSMOLALITY 281 mosm/kg (275-300); CALCIUM 8.7 mg/dL (8.5-10.1); CARBON DIOXIDE 31.3 mmol/L (21.0-32.0); CHLORIDE - SERUM 104 mmol/L (98-107); CREATININE - SERUM 1.1 mg/dL (0.6-1.3); GLUCOSE 130 mg/dL (74-106); PROTEIN - SERUM 7.2 g/dL (6.4-8.2); SODIUM 141 mmol/L (136-145); UREA NITROGEN 10 mg/dL (7-18); eGFR NON AFRICAN AMERICAN 72 mL/min (90-120)
[2018-11-20 07:53] LABS: CKMB 0.3 U/L (0.0-3.6); CREATINE KINASE 56 UL (21-232); MAGNESIUM - SERUM 1.8 mg/dL (1.8-2.4); THYROID STIMULATING HORMONE 0.92 uIU/mL (0.36-3.74); TROPONIN-I < 0.017 ng/mL (0.000-0.060)
--- NOTE | 2018-11-20 08:54 | NUR ---
ORDERED MAYE ANGELES COMPLETED.
--- NOTE | 2018-11-20 10:21 | MORECARE ---
CASE MANAGEMENT DISCHARGE SUMMARY PATIENT: CATERINA BROWNING UNIT: [id number] ADM DATE: 11/20/18 AGE: 63 : 55 SEX: M ROOM/BED: D.T02 AUTHOR: PIETER SCHUMACHER PHYSICIAN: REFERRING PHYSICIAN: STONE ESTRADA MD DATE OF SERVICE: 11/20/18 Discharge Plan Patient Name: CATERINA BROWNING Facility: [facility]:[place] : 1955 Planned Disposition: Home Anticipated Discharge Date: 11/22/18 Discharge Date: Expected LOS: 2 Initial Reviewer: [email or web address] Initial Review Date: 11/20/2018 Generated: 11/20/18 11:21 am Patient Name: CATERINA BROWNING Page [phone] at 1021 All edits/amendments must be made on the electronic document DICTATION DATE: 11/20/18 1021 FOOTWEAR PRODUCTION MACHINE OPERATOR: BRANDON 11/20/18 1021 RPT#: [id number] DC DATE: STATUS: ADM IN [facility] [address] [place] [address] END OF REPORT
--- NOTE | 2018-11-20 10:34 | MORECARE ---
CASE MANAGEMENT DISCHARGE SUMMARY PATIENT: CATERINA HUSSEIN UNIT: [id number] ADM DATE: 11/20/18 AGE: 63 : 55 SEX: M ROOM/BED: D.T02 AUTHOR: PIETER SCHUMACHER PHYSICIAN: REFERRING PHYSICIAN: STONE ESTRADA MD DATE OF SERVICE: 11/20/18 Discharge Plan Patient Name: CATERINA HUSSEIN Facility: [facility]:[place] : 1955 Planned Disposition: Home Anticipated Discharge Date: 11/22/18 Discharge Date: Expected LOS: 2 Initial Reviewer: [email or web address] Initial Review Date: 11/20/2018 Generated: 11/20/18 11:34 am DCPIA - Discharge Planning Initial Assessment Updated by [email or web address]: Samantha Key on 11/20/18 10:33 am * Is the patient Alert and Oriented? Yes * How many steps to enter\exit or inside your home? None * PCP Dr. Angulo * [facility] * Preadmission Environment Home with Family * ADLs Independent * Equipment Cane Rolling Walker * List name and contact numbers for known caregivers / representatives who currently or will assist patient after discharge: Halie Hussein - - [phone] * Verbal permission to speak to the caregivers and representatives has been obtained from the patient. Yes * Community resources currently utilized None * Additional services required to return to the preadmission environment? No * Can the patient safely return to the preadmission environment? Yes * Has this patient been hospitalized within the prior 30 days at any hospital? No Last DP export: 11/20/18 9:21 a Patient Name: CATERINA HUSSEIN Page [id number] at 1034 All edits/amendments must be made on the electronic document DICTATION DATE: 11/20/18 1034 CORPORATE GIVING MANAGER: BRANDON 11/20/18 1034 RPT#: [id number] DC DATE: STATUS: ADM IN [facility] [address] [place] [address] END OF REPORT
--- NOTE | 2018-11-20 10:42 | MORECARE ---
CASE MANAGEMENT DISCHARGE SUMMARY PATIENT: CATERINA BROWNING UNIT: [id number] ADM DATE: 11/20/18 AGE: 63 : 55 SEX: M ROOM/BED: D.T02 AUTHOR: WINSOMEDOC PHYSICIAN: REFERRING PHYSICIAN: STONE ESTRADA MD DATE OF SERVICE: 11/20/18 Discharge Plan Patient Name: CATERINA BROWNING Facility: [facility]:[place] : 1955 Planned Disposition: Home Anticipated Discharge Date: 11/22/18 Discharge Date: Expected LOS: 2 Initial Reviewer: [email or web address] Initial Review Date: 11/20/2018 Generated: 11/20/18 11:42 am DCP- Discharge Planning Updated by [email or web address]: Samantha Key on 11/20/18 9:[address] Patient Name: CATERINA BROWNING Admission Status: ER Accout number: [id number] Admission Date: 11-20-2018 : 1955 Admission Diagnosis: Attending: STONE ESTRADA Current LOS: 1 Anticipated DC Date: 11-22-2018 Planned Disposition: Home Primary Insurance: [employer] [facility] Discharge Planning Comments: CM met with patient and his , Halie to complete initial dc planning assessment. CM educated patient on the CM role and verbal consent given by patient to complete assessment. Patient lives at home with his and is independent in his care at home. He is having trouble today answering questions and his is assisting him. CM asked if he normally has problems with his memory and she reported yes but it is worse today. At discharge patient plans to return home and feels this is a safe discharge. CM discussed availability of home health, rehab services, and medical equipment. Patient denied known discharge needs at this time. CM will continue to follow and will assist as needed with dc plans/needs. Sock Folder: Samantha Key RN, [facility] DCPIA - Discharge Planning Initial Assessment Updated by [email or web address]: Samantha Key on 11/20/18 10:33 am * Is the patient Alert and Oriented? Yes * How many steps to enter\exit or inside your home? None * PCP Dr. Angulo * [facility] * Preadmission Environment Home with Family * ADLs Independent * Equipment Cane Rolling Walker * List name and contact numbers for known caregivers / representatives who currently or will assist patient after discharge: Halie Browning - - [phone] * Verbal permission to speak to the caregivers and representatives has been obtained from the patient. Yes * Community resources currently utilized None * Additional services required to return to the preadmission environment? No * Can the patient safely return to the preadmission environment? Yes * Has this patient been hospitalized within the prior 30 days at any hospital? No Last DP export: 11/20/18 9:34 a Patient Name: CATERINA BROWNING Page [phone] at 1042 All edits/amendments must be made on the electronic document DICTATION DATE: 11/20/181041 ADMINISTRATION CLERK: BRANDON 11/20/181041 RPT#: [id number] DC DATE: STATUS: ADM IN [facility] [address] [place] [address] END OF REPORT
--- NOTE | 2018-11-20 11:23 | NUR ---
PT TOOK GABAPENTIN AND NUCYNTA PER DR ESTRADA. PT ALSO TOOK 2 OTHER UNKNOWN MEDICATIONS. PT STATES HE "DOESNT KNOW WHAT THEY WERE CALLED OR WHAT THEY WERE FOR". PT TOLD BY NURSE TO ONLY TAKE NUCYNTA AND GABAPENTIN.
--- NOTE | 2018-11-20 12:16 | NUR ---
DR ESTRADA NOTIFIED OF PT UNABLE TO URINATE. ORDERED TO PLACE A KEY AND CHECK OUTPUT.
--- NOTE | 2018-11-20 14:52 | NUR ---
PT HAD 1400 ML OUTPUT AFTER KEY WAS PLACED.
--- NOTE | 2018-11-20 16:45 | NUR ---
PT ARRIVED TO UNIT FROM ER VIA BED. AA&O X 4. REPORT PAIN DUE TO FIBROMYALGIA 8/10 TINGLING ALL OVER. TAKES NUCYNTA AT HOME. ON ROOM AIR. CONNECTED TO ICU MONITORS. HAS PIV ON RIGHT HAND 20G. NS AT 125ML/HR. FAMILY AT BEDSIDE. SAFETY MEASURES IN PLACE. WILL CONTINUE TO MONITOR.
--- NOTE | 2018-11-20 17:56 | NUR ---
PT TAKE NUCYNTA 100MG PO 4 TIMES DAILY. PT ANS SPOUSE ASKING IF HE WAS GOING TO GET IT AT 5PM. DR. ESTRADA NOTIFIED. HE STATED TO RE-START MED.
--- NOTE | 2018-11-20 18:09 | NUR ---
UNABLE TO GIVE NUCYNTA AT THIS TIME. NEEDING PT'S HOME MEDICATION TO BE ABLE TO GIVE THIS MED. CALLED PLACE TO MRS. BROWNING. NO ANSWER. LEFT MESSAGE TO RETURN CALL SOON SHE CAN. PT AGRAVATED THAT HE CAN'T HAVE HIS MEDICATION.
--- NOTE | 2018-11-20 19:00 | NUR ---
UA COLLECTED FROM KEY CATHETER.
[2018-11-20 19:19] LABS: APPEARANCE CLEAR (CLEAR); COLOR YELLOW (YELLOW); NITRITE NEGATIVE (NEGATIVE); SPECIFIC GRAVITY 1.015 (1.005-1.020)
[2018-11-20 19:20] LABS: BILIRUBIN NEGATIVE (NEGATIVE); GLUCOSE NEGATIVE (NEGATIVE); KETONE NEGATIVE (NEGATIVE); PROTEIN NEGATIVE (NEGATIVE); UROBILINOGEN NORMAL (NORMAL)
[2018-11-20 19:22] LABS: BACTERIA FEW /hpf (NONE SEEN); RED CELLS - URINE 25-50 /hpf (0-5); WHITE CELLS - URINE 0-5 /hpf (0-5)
--- NOTE | 2018-11-20 20:30 | NUR ---
PT IS AWAKE AND ALERT. DENIES PAIN. FAMILY AT BEDSIDE. SLIGHT LEFT SIDE WEAKNESS NOTED. HIS SAYS THAT IS THE ONLY NEW CHANGES THAT SHE HAS NOTICED. PTS SAYS SHE WOULD LIKE TO SPEAK WITH DR BURGER ABOUT UPCOMING PROCEDURE. SAYS SHE WILL BE HERE TOMORROW MORNING.
[2018-11-21] VITALS (22 sets, daily range): BP systolic 111–158; BP diastolic 60–93; Ht 172.7 cm; Wt 83.1 kg
[2018-11-21 04:42] LABS: BASOPHILS 0.2 % (0-2); EOSINOPHILS 0 % (0-7); HEMATOCRIT 34.9 % (42.0-54.0); HEMOGLOBIN 12.1 g/dL (13.5-17.5); IMMATURE GRANULOCYTES 0.2 % (0-5); LYMPHOCYTES 27.4 % (15-50); MCH 31.3 pg (26.0-34.0); MCHC 34.7 g/dL (31.0-37.0); MCV 90.2 fL (80.0-100.0); MEAN PLATELET VOLUME 9.6 fL (7.4-10.4); MONOCYTES 7.5 % (2-11); NEUTROPHILS 64.7 % (40-80); PLATELET COUNT 123 10x3/uL (130-400); RBC 3.87 10x6/uL (4.20-6.10); RDW 13.3 % (11.5-14.5); WBC 5.3 10x3/uL (4.8-10.8)
[2018-11-21 05:03] LABS: ALBUMIN 2.8 g/dL (3.4-5.0); ALKALINE PHOSPHATASE 39 U/L (46-116); ALT (SGPT) 29 U/L (10-68); BILIRUBIN - TOTAL 0.59 mg/dL (0.2-1.3); CALC OSMOLALITY 287 mosm/kg (275-300); CALCIUM 7.5 mg/dL (8.5-10.1); CARBON DIOXIDE 27.9 mmol/L (21.0-32.0); CHLORIDE - SERUM 111 mmol/L (98-107); CREATININE - SERUM 0.9 mg/dL (0.6-1.3); GLUCOSE 109 mg/dL (74-106); POTASSIUM - SERUM 3.8 mmol/L (3.5-5.1); PROTEIN - SERUM 5.9 g/dL (6.4-8.2); SODIUM 145 mmol/L (136-145); UREA NITROGEN 8 mg/dL (7-18); eGFR NON AFRICAN AMERICAN > 90 mL/min (90-120)
--- NOTE | 2018-11-21 07:00 | NUR ---
ASSESSMENT PER FLOWSHEET. VOICES NO CO AT [facility].
--- NOTE | 2018-11-21 10:00 | NUR ---
PT HERE. WILL ASSESS LATER IN SHIFT WAITING ON OT.
--- NOTE | 2018-11-21 11:30 | NUR ---
BS 191 2 UNITS OF REGULAR INSULIN GIVEN.
--- NOTE | 2018-11-21 12:00 | NUR ---
SITTING UP IN BED EATING LUNCH NO CO AT TIME.
[2018-11-21 12:01] LABS: INR 1.29 (0.85-1.17); PROTIME 15.5 SECONDS (11.6-15.0)
--- NOTE | 2018-11-21 13:14 | NUR ---
SITTING UP IN BED EATING LUNCH NO CO AT TIME.
--- NOTE | 2018-11-21 14:53 | NUR ---
BATH GIVEN LINEN CHANGE. UP IN CHAIR PER PT AND OT.
--- NOTE | 2018-11-21 14:54 | NUR ---
PT FAVORS THE RIGHT SIDE FOR LEANING.
--- NOTE | 2018-11-21 17:15 | NUR ---
OT NOTE: [phone]) PT COMPLETED BED MOB WITH MOD/MAX A. PT COMPLETED SIT TO STAND WITH MOD/MAX A. PT EXHIBITS RIGHT LATERAL LEAN THAT INCREASES DIFFICULTY WITH BALANCE. THANK YOU, EITAN BERRIOS
--- NOTE | 2018-11-21 19:00 | NUR ---
REPORT RECIEVED, SHIFT ASSESSMENT COMPLETE, PLEASE SEE FLOW SHEETS FOR DETAILS. VSS. WILL CONTINUE PLAN OF CARE.
--- NOTE | 2018-11-21 20:30 | NUR ---
UP TO BEDSIDE CAMODE WITH MAX ASSIST. LARGE SOFT BM NOTED. TOLERATED ACTIVITY WELL. BACK TO BED. VSS. CONTINUING PLAN OF CARE.
--- NOTE | 2018-11-21 21:30 | NUR ---
TOLERATED PO WELL. TURNING PROVIDED. VSS. WILL CONTINUE PLAN OF CARE.
--- NOTE | 2018-11-21 22:56 | NUR ---
REASSESSMENT COMPLETE, PLEASE SEE FLOW SHEETS FOR DETAILS. VSS. BED LOW AND LOCKED, CALL LIGHT AND PERSONALS IN REACH. WILL CONTINUE PLAN OF CARE.
[2018-11-22] VITALS (25 sets, daily range): BP systolic 94–148; BP diastolic 59–88
--- NOTE | 2018-11-22 01:00 | NUR ---
RESTING. VSS. WILL CONTINUE PLAN OF CARE.
--- NOTE | 2018-11-22 02:45 | NUR ---
REASSESSMENT COMPLETE, PLEASE SEE FLOW SHEETS FOR DETAILS. VSS. BED LOW AND LOCKED, CALL LIGHT IN REACH. WILL CONTINUE PLAN OF CARE.
[2018-11-22 04:30] LABS: BASOPHILS 0 % (0-2); EOSINOPHILS 0 % (0-7); HEMATOCRIT 35.5 % (42.0-54.0); HEMOGLOBIN 12.5 g/dL (13.5-17.5); IMMATURE GRANULOCYTES 0.1 % (0-5); LYMPHOCYTES 9.3 % (15-50); MCH 31.2 pg (26.0-34.0); MCHC 35.2 g/dL (31.0-37.0); MCV 88.5 fL (80.0-100.0); MONOCYTES 2.4 % (2-11); NEUTROPHILS 88.2 % (40-80); RBC 4.01 10x6/uL (4.20-6.10); RDW 13.1 % (11.5-14.5)
[2018-11-22 04:57] LABS: PLATELET COUNT 160 10x3/uL (130-400); WBC 7.9 10x3/uL (4.8-10.8)
[2018-11-22 05:00] LABS: CALCIUM 7.9 mg/dL (8.5-10.1); CARBON DIOXIDE 25.6 mmol/L (21.0-32.0); CHLORIDE - SERUM 108 mmol/L (98-107); CREATININE - SERUM 0.8 mg/dL (0.6-1.3); POTASSIUM - SERUM 4.2 mmol/L (3.5-5.1); SODIUM 141 mmol/L (136-145); eGFR NON AFRICAN AMERICAN > 90 mL/min (90-120)
--- NOTE | 2018-11-22 05:00 | NUR ---
DECLINED BATH. VSS. BED LOW AND LOCKED, CALL LIGHT IN REACH. DENIES PAIN/NEEDS. WILL CONTINUE PLAN OF CARE.
[2018-11-22 05:05] LABS: CALC OSMOLALITY 283 mosm/kg (275-300); GLUCOSE 178 mg/dL (74-106); UREA NITROGEN 11 mg/dL (7-18)
--- NOTE | 2018-11-22 07:35 | NUR ---
SHIFT REPORT RECEIVED. PT RESTING COMFORTABLY IN BED. DENIES ANY PAIN. ON ROOM AIR. VSS. NO FEVER NOTED. HAS RIGHT HAND PIV WITH NS AT 100ML/HR. KEY IN PLACE WITH YELLOW URINE NOTED. SHIFT ASSESSMENT COMPLETED. SAFETY MEASURES IN PLACE. WILL CONTINUE TO MONITOR.
--- NOTE | 2018-11-22 09:11 | NUR ---
PT ACCIDENTALY PULLED RIGHT HAND PIV OUT. 22G PIV INSERTED ON RIGHT WRIST. AM MEDS GIVEN. NO FURTHER NEEDS. WILL CONTINUE TO MONITOR.
--- NOTE | 2018-11-22 10:00 | NUR ---
COMPLETE LINEN CHANGE PROVIDED AT THIS TIME. PULLED UP AND REPOSITIONED FOR COMFORT. DENIES FURTHER NEEDS. WILL CONTINUE TO MONITOR.
--- NOTE | 2018-11-22 11:00 | NUR ---
RE-ASSESSMENT COMPLETED. NO ACUTE CHANGES FROM PREVIOUS ASSESSMENT. VSS. REQUEST SCD'S TO BE TAKEN OFF AT THIS TIME.
--- NOTE | 2018-11-22 12:15 | NUR ---
up in chair at bedside per physical therapy. lunch tray served. still leaning to the right. pillows place to maintain body alignment
--- NOTE | 2018-11-22 13:39 | NUR ---
NO DISTRESS. ON CELL PHONE. DENIES PAIN
--- NOTE | 2018-11-22 14:15 | NUR ---
REPOSITIONED IN THE CHAIR. NO DISTRESS. STATES ONE LEG FEEL HEAVIER THAN THE OTHER. NO CHANGES. HANDS MEAT COUNTER CLERK LEFT SLIGHT WEAKER THAN RIGHT.
--- NOTE | 2018-11-22 17:10 | NUR ---
OT NOTE: BED MOB WITH MOD ASSIST; SITTING BALANCE REMAINS AT MOD ASSIST LEVEL DUE TO INABILITY TO RIGHT SELF..CONTINUOUS LEAN TO R SIDE BUT IS UNAWARE. HOWEVER, PT ABLE TO AMB TODAY WITH MIN ASSIST X 2 AND WALKER.. AMBULATION AND STANDING BALANCE WAS BETTER THAN SITTING BALANCE. AMB APPROX 30 FT WITH WALKER. TRANSFERRED TO CHAIR WITH MOD ASSIST. REQUIRED POSITIONING WITH PILLOWS TO PREVENT HARD LEAN TO R SIDE. SIMPLE GROOMING INCLUDING WASHING FACE AND HANDS WITH CLOTH WITH SET UP/MIN ASSIST. MARY LOYA, OTR/L
--- NOTE | 2018-11-22 19:40 | NUR ---
PT AOX3, DISORIENTED TO TIME, HAS PERIODS OF CONFUSION. PUPILS EQUAL AND REACTIVE. LT MICROMATIC HONE OPERATOR WEAKER THAN RT, LT SIDE WEAKER THAN RT. TONGUE MIDLINE. LUNG SOUNDS CLEAR/DIMINISHED, UNLABORED RESPIRATIONS. S1S2 HEARD, PERIPHERAL PULSES PRESENT. BOWEL SOUNDS ACTIVE IN ALL QUADRANTS. KEY CATH INTACT AND DRAINING. PT REPOSITIONED FOR COMFORT. FRESH WATER TO BEDSIDE. PT DENIES FURTHER NEEDS AT THIS TIME. CALL LIGHT AND BEDSIDE TABLE WITHIN PT REACH. CPOC.
--- NOTE | 2018-11-22 21:20 | NUR ---
HS MEDS GIVEN, TOLERATED WELL. PT REPOSITIONED FOR COMFORT. NO CHANGES AT THIS TIME. DENIES NEEDS. VSS, CPOC.
--- NOTE | 2018-11-22 23:30 | NUR ---
REASSESSMENT COMPLETE, NO NEW CHANGES AT THIS TIME. PT REPOSITIONED FOR COMFORT NO C/O PAIN AT THIS TIME. PARTIAL LINEN CHANGE PROVIDED. VSS, CPOC.
[2018-11-23] VITALS (25 sets, daily range): BP systolic 116–151; BP diastolic 58–85
--- NOTE | 2018-11-23 01:30 | NUR ---
NO CHANGES AT THIS TIME. PT REPOSITIONED FOR COMFORT. VSS, DENIES NEEDS. CALL LIGHT WITHIN PT REACH. CPOC.
--- NOTE | 2018-11-23 03:30 | NUR ---
REASSESSMENT COMPLETE, NO NEW CHANGES AT THIS TIME. VSS, NO C/O PAIN. PT REPOSITIONED FOR COMFORT. DENIES FURTHER NEEDS AT THIS TIME. CALL LIGHT AND BEDSIDE TABLE WITHIN PT REACH. CPOC.
[2018-11-23 04:07] LABS: BASOPHILS 0 % (0-2); EOSINOPHILS 0 % (0-7); HEMATOCRIT 35.2 % (42.0-54.0); HEMOGLOBIN 12.5 g/dL (13.5-17.5); IMMATURE GRANULOCYTES 0.2 % (0-5); LYMPHOCYTES 9.9 % (15-50); MCH 31.6 pg (26.0-34.0); MCHC 35.5 g/dL (31.0-37.0); MCV 89.1 fL (80.0-100.0); MEAN PLATELET VOLUME 9.9 fL (7.4-10.4); MONOCYTES 3.1 % (2-11); NEUTROPHILS 86.8 % (40-80); PLATELET COUNT 155 10x3/uL (130-400); RBC 3.95 10x6/uL (4.20-6.10); RDW 13.4 % (11.5-14.5); WBC 8.8 10x3/uL (4.8-10.8)
[2018-11-23 04:30] LABS: CALC OSMOLALITY 285 mosm/kg (275-300); CALCIUM 7.9 mg/dL (8.5-10.1); CARBON DIOXIDE 24.6 mmol/L (21.0-32.0); CHLORIDE - SERUM 107 mmol/L (98-107); CREATININE - SERUM 0.8 mg/dL (0.6-1.3); GLUCOSE 203 mg/dL (74-106); POTASSIUM - SERUM 4.2 mmol/L (3.5-5.1); SODIUM 140 mmol/L (136-145); eGFR NON AFRICAN AMERICAN > 90 mL/min (90-120)
[2018-11-23 04:39] LABS: UREA NITROGEN 14 mg/dL (7-18)
--- NOTE | 2018-11-23 05:30 | NUR ---
PT RESTING QUIETLY WITH NO S/S OF DISTRESS NOTED. PT REPOSITIONED SELF INDEPENDENTLY. VSS. CPOC.
--- NOTE | 2018-11-23 07:00 | NUR ---
REPORT RECEVIED FROM THE OFF GOING RN. SEE ASSESSMENT IN THE PTS FLOW SHEET. PT SITTING UP IN BED. VSS. FACE SYMETRICAL WITH AN EVEN SMILE. PUPILS PERRLA. BUE STRENGTH EQUAL. LLE SLIGHTLY WEAKER THAN THE RLE. PT DENIES ACUTE PAIN. FC NOTED WITH CLEAR, YELLOW URINE. CALL LIGHT IN REACH. WILL CONT POC.
--- NOTE | 2018-11-23 07:30 | NUR ---
BREAKFAST TRAY PROVIDED FOR THE PT. CALL LIGHT IN REACH. WILL CONT POC.
--- NOTE | 2018-11-23 09:00 | NUR ---
AM MEDS GIVEN WITH NO ISSUES. CALL LIGHT IN REACH. WILL CONT POC.
--- NOTE | 2018-11-23 10:04 | NUR ---
NUTRITION F/U PT REPORTS GOOD APPETITE AND PO INTAKE. CURRENTLY ON DIABETIC DIET. WILL CONTINUE TO MONITOR PT PROGRESS. RD FOLLOWING
--- NOTE | 2018-11-23 10:20 | NUR ---
PHYSCIAL THEARPY AT THE PTS BEDSIDE. AMBULATED ABOUT 50 FEET WITH AN UNSTEADY AND SLOW GAIT. PT IN THE BEDSIDE CHAIR. VSS. PT TOLERATED WELL. WILL CONT POC.
--- NOTE | 2018-11-23 11:57 | NUR ---
LUNCH PROVIDED FOR THE PT. DENIES NEEDS. CALL LIGHT IN REACH. WILL CONT POC.
--- NOTE | 2018-11-23 16:06 | NUR ---
DR BURGER IN THE UNIT. DR BURGER STATED THAT HE SPOKE WITH THE PTS . PLAN FOR RENEE MCDERMOTT IN THE AM.
--- NOTE | 2018-11-23 17:00 | NUR ---
MEAL TRAY PROVIDED. VSS. NO COMPLAINTS
--- NOTE | 2018-11-23 20:23 | NUR ---
PATIENT UP TO BATHROOM WITH WALKER AND MODERATE ASSIST. PATIENT PASSING GAS NEEDS TO HAVE BM.
[2018-11-24] VITALS (28 sets, daily range): BP systolic 101–160; BP diastolic 54–83
[2018-11-24 06:32] LABS: CALC OSMOLALITY 286 mosm/kg (275-300); CALCIUM 7.7 mg/dL (8.5-10.1); CARBON DIOXIDE 23.9 mmol/L (21.0-32.0); CHLORIDE - SERUM 108 mmol/L (98-107); CREATININE - SERUM 0.8 mg/dL (0.6-1.3); GLUCOSE 220 mg/dL (74-106); POTASSIUM - SERUM 4.1 mmol/L (3.5-5.1); SODIUM 140 mmol/L (136-145); UREA NITROGEN 16 mg/dL (7-18); eGFR NON AFRICAN AMERICAN > 90 mL/min (90-120)
[2018-11-24 06:35] LABS: BASOPHILS 0 % (0-2); EOSINOPHILS 0 % (0-7); HEMATOCRIT 36.7 % (42.0-54.0); HEMOGLOBIN 12.9 g/dL (13.5-17.5); IMMATURE GRANULOCYTES 0.4 % (0-5); LYMPHOCYTES 9.8 % (15-50); MCH 31.3 pg (26.0-34.0); MCHC 35.1 g/dL (31.0-37.0); MCV 89.1 fL (80.0-100.0); MEAN PLATELET VOLUME 10.3 fL (7.4-10.4); MONOCYTES 4.6 % (2-11); NEUTROPHILS 85.2 % (40-80); PLATELET COUNT 159 10x3/uL (130-400); RBC 4.12 10x6/uL (4.20-6.10); RDW 13.5 % (11.5-14.5); WBC 8.1 10x3/uL (4.8-10.8)
--- NOTE | 2018-11-24 06:59 | NUR ---
ALL INFORTMATION DOCUMENTED BEFORE 0700 WAS ENTERED BY WALTER GUADALUPE FROM THE PREVIOUS SHIFT.
--- NOTE | 2018-11-24 07:00 | NUR ---
REPORT RECEVIED FROM THE OFF GOING RN. SEE ASSESSMENT IN THE PTS FLOW SHEET. PT IN BED. A&O X4. EYES PERRLA. BUE DEEP WELL CONTRACTOR EQUAL. LLE SLIGHTLY WEAKER THE THE RIGHT. FACE SYMETRICAL BUT THE PT DOES KEEP LEANING TO THE RIGHT SIDE. OFF GOING RN STATED THE PT HAS BEEN NPO SINCE MIDNIGHT. FC NOTED WITH CLEAR, YELLOW URINE. RIGHT WRIST IV PATENT WITH NS INFUSING. DRESSING C/D/I. NO SIGNS OF INFILTRATIONS NOTED. PT DENIES PAIN. CALL LIGHT IN REACH. WILL CONT POC.
--- NOTE | 2018-11-24 08:41 | NUR ---
SURGERY CALLED TO PREOP THE PT. CONSENTS IN THE CHART AND PT PREOP.
--- NOTE | 2018-11-24 09:45 | NUR ---
OR TEAM TOOK CHART AND PT TO THE OR IN A STABLE CONDITION. FAMILY AT THE BEDSIDE AND AWARE.
--- NOTE | 2018-11-24 12:27 | NUR ---
PT ARRIVED BACK IN THE UNIT. PT A&O X4. BUE BOARD WRITER EQUAL. LLE SLIGHTLY WEAKER THAN THE RLE. SLIGHT RIGHT FACIAL DROOP NOTED. EYES PERRLA. BILATERAL SIDES OF THE MID OCCIPITAL LOBE AREA OF THE PTS HEAD IS NOTED TO HAVE 2 JHOANA DRAINS LABLED 1 AND 2. JHOANA 1 NOTED TO HAVE NO DRAINAGE AND JHOANA 2 HAS BLOODY DRAINAGE. DRESSINGS NOTED TO EITHER SIDE OF THE HEAD. BOTH BULBS COMPRESSED. VSS. PT HAS A NEW IV TO THE LEFT ARM. PATENT. DRESSING C/D/I. PT DENIES PAIN. CALL LIGHT IN [facility]. WILL CONT POC.
--- NOTE | 2018-11-24 13:21 | NUR ---
PT C/O RAYMOND/INCISIONAL PAIN. NO CHANGE NEUROLOGICALLY. DR ROLAND THOMAS. N.O FOR DILAUDID. SEE MAR.
--- NOTE | 2018-11-24 14:21 | NUR ---
PT ADVANCED TO PO FLUIDS. PT TOLERATING WELL. PO MEDS GIVEN WITH NO ISSUES.
--- NOTE | 2018-11-24 17:00 | NUR ---
PT SITTING UP IN HIS BED. DENIES PAIN. NEUROCHECKS UNCHANGED.NO DRAINAGE FROM JHOANA 1 BUT JHOANA 2 REMANIS TO HAVE BLOODY DRAINAGE. BOTH COMPRESSED. PT EATING HIS DINNER WITH NO ISSUES. WILL CONT POC.
--- NOTE | 2018-11-24 19:00 | NUR ---
Report recieved, shift assessment complete, please see flow sheets for details. Denies pain/needs. VSS. Bed low and locked, call light in reach. Will continue plan of care.
--- NOTE | 2018-11-24 21:00 | NUR ---
TOLERATES PO WELL. DENIES PAIN/NEEDS. FAMILY AT BEDSIDE, UPDATE PROVIDED. VSS. WILL CONTINUE PLAN OF CARE.
--- NOTE | 2018-11-24 23:00 | NUR ---
REASSESSMENT COMPLETE, PLEASE SEE FLOW SHEETS FOR DETAILS. VSS. BED LOW AND LOCKED, CALL LIGHT IN REACH. WILL CONTINUE PLAN OF CARE.
[2018-11-25] VITALS (23 sets, daily range): BP systolic 108–158; BP diastolic 56–81
--- NOTE | 2018-11-25 00:57 | NUR ---
RESTING. VSS. KEY CARE PROVIDED. DENIES PAIN/NEEDS. BED LOW AND LOCKED, CALL LIGHT IN REACH. WILL CONTINUE PLAN OF CARE.
--- NOTE | 2018-11-25 02:53 | NUR ---
REASSESSMENT COMPLETE, PLEASE SEE FLOW SHEETS FOR DETAILS. VSS. BED LOW AND LOCKED, CALL LIGHT IN REACH. WILL CONTINUE PLAN OF CARE.
--- NOTE | 2018-11-25 05:00 | NUR ---
FULL BED BATH AND LINEN CHANGE PROVIDED. KEY CARE PROVIDED. TOLERATED WELL. TURNING PROVIDED. VSS. BED LOW AND LOCKED, CALL LIGHT IN REACH. WILL CONTINUE PLAN OF CARE.
[2018-11-25 05:45] LABS: BASOPHILS 0.1 % (0-2); EOSINOPHILS 0 % (0-7); HEMOGLOBIN 13.2 g/dL (13.5-17.5); IMMATURE GRANULOCYTES 0.7 % (0-5); MCH 31.5 pg (26.0-34.0); MCHC 35.7 g/dL (31.0-37.0); MCV 88.3 fL (80.0-100.0); MEAN PLATELET VOLUME 10.4 fL (7.4-10.4); MONOCYTES 7.7 % (2-11); NEUTROPHILS 83.5 % (40-80); PLATELET COUNT 157 10x3/uL (130-400); RBC 4.19 10x6/uL (4.20-6.10); RDW 13.4 % (11.5-14.5); WBC 9.7 10x3/uL (4.8-10.8)
[2018-11-25 06:02] LABS: CALC OSMOLALITY 286 mosm/kg (275-300); CALCIUM 7.8 mg/dL (8.5-10.1); CARBON DIOXIDE 26.5 mmol/L (21.0-32.0); CHLORIDE - SERUM 106 mmol/L (98-107); CREATININE - SERUM 0.9 mg/dL (0.6-1.3); GLUCOSE 222 mg/dL (74-106); POTASSIUM - SERUM 4.2 mmol/L (3.5-5.1); SODIUM 140 mmol/L (136-145); UREA NITROGEN 16 mg/dL (7-18); eGFR NON AFRICAN AMERICAN > 90 mL/min (90-120)
--- NOTE | 2018-11-25 07:00 | NUR ---
REC'D CARE OF PT. A&O X3. DRSG CD&I AT BILAT PARITEAL LOBES. DRAINS IN PLACE. PROPERLY SECURED X2. CLWR. CPOC.
--- NOTE | 2018-11-25 08:49 | NUR ---
FAMILY AT BEDSIDE. UPDATED BY PT.
--- NOTE | 2018-11-25 10:29 | NUR ---
AMBULATED 175 FEET WITH DAHIANA BOWER PT AND BACK TO CHAIR. WITHOUT DIFFICULTY.
--- NOTE | 2018-11-25 10:38 | NUR ---
IN CHAIR VISITING WITH FAMILY. NO DISTRESS.VSS.
--- NOTE | 2018-11-25 11:30 | NUR ---
REASSESSMENT COMPLETED PER FLOW SHEET. SEE NOTED CHANGES. NO ACUTE CHANGES IN NEURO ASSESSMENT.
--- NOTE | 2018-11-25 12:30 | NUR ---
FAMILY AT [facility]. UPDATED.
--- NOTE | 2018-11-25 14:00 | NUR ---
AMBULATED WITH DAHIANA BOWER PT
--- NOTE | 2018-11-25 14:33 | NUR ---
REASSESSMENT COMPLETED PER FLOW SHEET. NO ACUTE CHANGES IN PHYSCIAL OR NEURO ASSESSMENT.
--- NOTE | 2018-11-25 16:14 | NUR ---
REMAINS UP IN CHAIR. VSS. DENIES NEEDS. DENIES PAIN. CLWR. CPOC.
--- NOTE | 2018-11-25 18:01 | NUR ---
DENEIS NEEDS. DENIES PAIN. NO CHANGE IN NEURO OR PHYSICAL ASSESSMENT. VSS. CLWR. CPOC.
--- NOTE | 2018-11-25 19:00 | NUR ---
REPORT RECIEVED, SHIFT ASSESSMENT COMPLETE, PLEASE SEE FLOW SHEETS FOR DETAILS. DENIES PAIN/NEEDS. VSS. UP IN CHAIR, FEET ELEVATED. CALL LIGHT IN REACH. WILL CONTINUE PLAN OF CARE.
--- NOTE | 2018-11-25 20:56 | NUR ---
BACK TO BED. TOLERATED PO MEDS WELL. PROVIDED FOR NEEDS. VSS. BED LOW AND LOCKED, CALL LIGHT IN REACH. WILL CONTINUE PLAN OF CARE.
--- NOTE | 2018-11-25 23:00 | NUR ---
Reassessment complete, please see flow sheet for details. Denies pain/needs. VSS, bed low and locked, call light in reach. Will continue plan of care.
[2018-11-26] VITALS (23 sets, daily range): BP systolic 105–157; BP diastolic 58–98
--- NOTE | 2018-11-26 01:00 | NUR ---
RESTING. VSS. BED LOW AND LOCKED, CALL LIGHT IN REACH. WILL CONTINUE PLAN OF CARE.
--- NOTE | 2018-11-26 02:54 | NUR ---
REASSESSMENT COMPLETE, PLEASE SEE FLOW SHEETS FOR DETAILS. DENIES PAIN/NEEDS. VSS, BED LOW AND LOCKED, CALL LIGHT IN REACH. WILL CONTINUE PLAN OF CARE.
--- NOTE | 2018-11-26 05:00 | NUR ---
RESTING, VSS, BED LOW AND LOCKED, CALL LIGHT IN REACH. WILL CONTINUE PLAN OF CARE.
[2018-11-26 06:08] LABS: BASOPHILS 0 % (0-2); EOSINOPHILS 0 % (0-7); HEMATOCRIT 36.3 % (42.0-54.0); HEMOGLOBIN 12.9 g/dL (13.5-17.5); IMMATURE GRANULOCYTES 1.2 % (0-5); LYMPHOCYTES 10.8 % (15-50); MCH 31.5 pg (26.0-34.0); MCHC 35.5 g/dL (31.0-37.0); MCV 88.8 fL (80.0-100.0); MEAN PLATELET VOLUME 10.2 fL (7.4-10.4); MONOCYTES 7.4 % (2-11); NEUTROPHILS 80.6 % (40-80); PLATELET COUNT 150 10x3/uL (130-400); RBC 4.09 10x6/uL (4.20-6.10); RDW 13.4 % (11.5-14.5); WBC 9.6 10x3/uL (4.8-10.8)
--- NOTE | 2018-11-26 07:00 | NUR ---
REC'D CARE OF PT. A&O X3.
--- NOTE | 2018-11-26 07:54 | NUR ---
EATING BREAKFAST AND ACCIDENTLY PULLS OUT JHOANA DRAIN #1. REDRESSED SITE.
--- NOTE | 2018-11-26 08:51 | NUR ---
I CALLED DR. BURGER AND UPDATED HIM ABOUT PT. PULLING OUT JHOANA DRAIN. DR. BURGER CONCERNED IF TIP WAS INTACT. HE EXPLAINED WHAT THE TIP SHOULD LOOK LIKE IF IT WAS INTACT. UPON FUTHER EXAMINATION OF TIP OF JHOANA DRAIN CATHETER THE TIP IS INTACT. ORDERS REC'D FOR CT OF HEAD IN THE MORNING.
--- NOTE | 2018-11-26 09:30 | NUR ---
AT BEDSIDE. UPDATED.
--- NOTE | 2018-11-26 09:54 | NUR ---
AMBULATED WITH DAHIANA BOWER PT AND BACK IN CHAIR.
--- NOTE | 2018-11-26 10:31 | NUR ---
REASSESSMENT COMPLETED PER FLOW SHEET. NO ACUTE NEURO OR PHYSICAL CHANGES.
--- NOTE | 2018-11-26 11:29 | NUR ---
DR. WATKINS AT BEDSIDE. ORDERS REC'D TO DC KEY CATH AND TO DC IVF.
--- NOTE | 2018-11-26 12:34 | NUR ---
REMAINS UP IN CHAIR. AT BEDSIDE. HELENE MORALES. CLWR. CPOC.
--- NOTE | 2018-11-26 14:35 | NUR ---
GETS SELF UP TO GO TO BATHROOM. SLIGHT UNSTEADY GATE. TOLD HIM TO CALL ME WHEN HE GOT READY TO GO TO THE BATHROOM BECAUSE I WAS ARAID HE WOULD FALL.
--- NOTE | 2018-11-26 14:36 | NUR ---
REASSESSMENT COMPLETED PER FLOW SHEET. NO ACUTE CHANGES IN NEURO OR PHYSICAL ASSESSMENT.
--- NOTE | 2018-11-26 16:20 | NUR ---
DINNER TRAY SERVED.
--- NOTE | 2018-11-26 17:11 | NUR ---
REMAINS IN CHAIR. DENIES NEEDS. NO CHANGES IN NEURO STATUS. CLWR. CPOC.
--- NOTE | 2018-11-26 19:21 | NUR ---
REPORT RECEIVED, SHIFT ASSESSMENT COMPLETED PER FLOW SHEET. AAOX4. PPP. SITTING UP IN CHAIR. BILAT PARIETAL DRESSINGS INTACT, NO DRAINAGE, RT JHONAA DRAIN COMPRESSED. DENIES NEEDS AT THIS TIME. SEE FLOW SHEET FOR COMPLETE ASSESSMENT. WILL CONTINUE TO MONITOR. CALL LIGHT WITHIN REACH.
--- NOTE | 2018-11-26 20:37 | NUR ---
CALL LIGHT ANSWERED, ASSISSTED UP TO USE BR. GAIT STEADY. VOID X1. ASSISSTED TO BED PER HIS REQUEST. CALL LIGHT AND BELONGINGS WITHIN REACH. WILL CONTINUE TO MONITOR.
--- NOTE | 2018-11-26 21:28 | NUR ---
SCHEDULED MEDS GIVEN, WATER PROVIDED. DENIES NEEDS. CALL LIGHT WITHIN REACH.
--- NOTE | 2018-11-26 23:01 | NUR ---
REASSESSMENT COMPLETED PER FLOW SHEET, SEE FOR DETAILS. NO ACUTE CHANGES NOTED. ASSISSTED TO BR, VOID X1. ASSISSTED BACK TO BED. DENIES OTHER NEEDS. CALL LIGHT WITHIN REACH.
[2018-11-27] VITALS (15 sets, daily range): BP systolic 100–143; BP diastolic 56–82
--- NOTE | 2018-11-27 01:00 | NUR ---
RESTING, NO ACUTE DISTRESS NOTED, WILL CONTINUE TO MONITOR.
--- NOTE | 2018-11-27 03:01 | NUR ---
REASSESSMENT COMPLETED PER FLOW SHEET, SEE FOR DETAILS. NO ACUTE DISTRESS NOTED. DENIES NEEDS. CALL LIGHT WITHIN REACH. WILL CONTINUE TO MONITOR.
[2018-11-27 03:42] LABS: HEMATOCRIT 36.9 % (42.0-54.0); HEMOGLOBIN 13.2 g/dL (13.5-17.5); LYMPHOCYTES 10.9 % (15-50); MCH 31.9 pg (26.0-34.0); MCHC 35.8 g/dL (31.0-37.0); MCV 89.1 fL (80.0-100.0); MEAN PLATELET VOLUME 9.7 fL (7.4-10.4); NEUTROPHILS 84.6 % (40-80); PLATELET COUNT 155 10x3/uL (130-400); RBC 4.14 10x6/uL (4.20-6.10); RDW 14.3 % (11.5-14.5)
[2018-11-27 04:09] LABS: ALBUMIN 2.7 g/dL (3.4-5.0); ALKALINE PHOSPHATASE 53 U/L (46-116); ALT (SGPT) 30 U/L (10-68); BILIRUBIN - TOTAL 0.66 mg/dL (0.2-1.3); CALC OSMOLALITY 285 mosm/kg (275-300); CALCIUM 7.9 mg/dL (8.5-10.1); CARBON DIOXIDE 28.8 mmol/L (21.0-32.0); CHLORIDE - SERUM 104 mmol/L (98-107); CREATININE - SERUM 0.8 mg/dL (0.6-1.3); GLUCOSE 250 mg/dL (74-106); POTASSIUM - SERUM 4.1 mmol/L (3.5-5.1); PROTEIN - SERUM 6.2 g/dL (6.4-8.2); SODIUM 138 mmol/L (136-145); UREA NITROGEN 19 mg/dL (7-18); eGFR NON AFRICAN AMERICAN > 90 mL/min (90-120)
--- NOTE | 2018-11-27 05:00 | NUR ---
RESTING COMFORTABLY, DENIES NEEDS, CALL LIGHT WITHIN REACH.
--- NOTE | 2018-11-27 06:00 | NUR ---
COMPLETE BED BATH GIVEN, COMPLETE BED LINEN CHANGE PROVIDED. CALL LIGHT WITHIN REACH. WILL CONTINUE TO MONITOR.
--- NOTE | 2018-11-27 11:59 | NUR ---
Nutrition Follow Up: Pt stated that his appetite is great. RD encouraged pt to continue with good po intake. Diet: ADA PO Intake: 100% meal avg BM: 11/22/18 I<O Labs reviewed - Glucose elevated Meds noted Rec continue current diet. RD following.
--- NOTE | 2018-11-27 12:54 | NUR ---
REPORT TO CRISTOFER ON MED SURGICAL FIGUEROA.
--- NOTE | 2018-11-27 12:58 | NUR ---
0800 PT UP SITTING IN CHAIR. BREAKFAST TRAY SERVED AND PT FEEDS SELF W/O DIFFICULTY.
--- NOTE | 2018-11-27 19:45 | NUR ---
PT SITTING UP IN CHAIR, AT BEDSIDE. ALERT AND ORIENTED, NO SIGNS OF DISTRESS. DRESSING X2 TO HEAD CDI. JHOANA DRAIN W/ MINIMAL DRAINAGE. IV LEFT FA SL. DENIES NEEDS AT THIS TIME. CL IN REACH, WILL CONT TO MONITOR
[2018-11-28 00:26] VITALS: BP 147/78
[2018-11-28 04:38] VITALS: BP 122/69
[2018-11-28 06:20] LABS: BASOPHILS 0.1 % (0-2); EOSINOPHILS 0 % (0-7); HEMATOCRIT 36.1 % (42.0-54.0); IMMATURE GRANULOCYTES 1.3 % (0-5); LYMPHOCYTES 21.4 % (15-50); MCH 31.9 pg (26.0-34.0); MCV 88.5 fL (80.0-100.0); MEAN PLATELET VOLUME 10.3 fL (7.4-10.4); MONOCYTES 7.7 % (2-11); NEUTROPHILS 69.5 % (40-80); PLATELET COUNT 149 10x3/uL (130-400); RBC 4.08 10x6/uL (4.20-6.10); RDW 13.6 % (11.5-14.5); WBC 12.1 10x3/uL (4.8-10.8)
[2018-11-28 07:13] LABS: ALBUMIN 2.7 g/dL (3.4-5.0); ALKALINE PHOSPHATASE 49 U/L (46-116); BILIRUBIN - TOTAL 0.63 mg/dL (0.2-1.3); CALCIUM 7.8 mg/dL (8.5-10.1); CHLORIDE - SERUM 105 mmol/L (98-107); CREATININE - SERUM 0.9 mg/dL (0.6-1.3); POTASSIUM - SERUM 3.9 mmol/L (3.5-5.1); PROTEIN - SERUM 5.4 g/dL (6.4-8.2); SODIUM 141 mmol/L (136-145); UREA NITROGEN 19 mg/dL (7-18); eGFR NON AFRICAN AMERICAN > 90 mL/min (90-120)
[2018-11-28 07:14] LABS: ALT (SGPT) 38 U/L (10-68); CALC OSMOLALITY 286 mosm/kg (275-300); GLUCOSE 172 mg/dL (74-106)
[2018-11-28 08:44] VITALS: BP 91/55
--- NOTE | 2018-11-28 10:35 | NUR ---
PT JHOANA DRAIN PULLED THIS MORNING BY DR BURGER, REMOVED STITCHES AND PLACED DRAIN IN BIO BAG, NO NEEDS VOICED BY PT, REMOVED BANDAGES, FERNANDO ON BOTH SIDES OF PT JEWISH CDI, PT SPOUSE INQUIRED ON POSSIBLE DC, CONMTINUE WITH PLAN OF CARE
[2018-11-28 12:39] VITALS: BP 85/43
--- NOTE | 2018-11-28 12:40 | NUR ---
PT BP RUNNING 88/54 PT STATES BP USUALLY 100'S OVER 70, CALLING PT SPOUSE CRISTOFER TO SEE WHAT BASELINE IS FOR PT.
--- NOTE | 2018-11-28 12:51 | NUR ---
SPOKE TO DR ESTRADA IN REGARDS TO PT BP LOW, PER DR ESTRADA ONE TIME BOLUS N/S
--- NOTE | 2018-11-28 13:52 | NUR ---
PT SITTING UP IN CHAIR AT BEDSIDE, BOLUS STILL RUNNING SHOWS 200ML LEFT ON BOLUS. NO S/S OF DISTRESS, CONTINUE WITH PLAN OF CARE
[2018-11-28 15:38] VITALS: BP 116/62; BP 96/55
--- NOTE | 2018-11-28 19:24 | NUR ---
OT NOTE: PT REQUIRED SBA FOR ADL MOB. PT COMPLETED TOILETING TASKS AND HYGIENE TASKS WITH SBA SECONDARY TO BALANCE. 06/1124 THANK YOU, EITAN BERRIOS
--- NOTE | 2018-11-28 20:30 | NUR ---
PT SITTING UP IN BED SIDE CHAIR, AT SIDE. ALERT AND ORIENTED, WITHOUT DISTRESS. IV LEFT HAND SL. STATES SOME PAIN TO BACK. GAVE HS MEDS WITHOUT DIFFICULTY. BS 143, NO COVERAGE PER SS. DENIES OTHER NEEDS AT THIS TIME. CL IN REACH, WILL CONT TO MONITOR
--- NOTE | 2018-11-28 20:46 | NUR ---
OT NOTE: GROOMING TASKS WITH SET UP; TOILETING WITH MIN ASSIST; TRANSFERS WITH CGA FOR BALANCE. PT DOING WELL. MARY LOYA, OTR/L
[2018-11-28 22:16] VITALS: BP 100/63
[2018-11-29 04:51] VITALS: BP 112/60
[2018-11-29 07:46] LABS: BASOPHILS 0 % (0-2); EOSINOPHILS 0.1 % (0-7); HEMATOCRIT 36.2 % (42.0-54.0); HEMOGLOBIN 12.8 g/dL (13.5-17.5); IMMATURE GRANULOCYTES 1.5 % (0-5); LYMPHOCYTES 22.5 % (15-50); MCH 31.6 pg (26.0-34.0); MCHC 35.4 g/dL (31.0-37.0); MCV 89.4 fL (80.0-100.0); MEAN PLATELET VOLUME 10.6 fL (7.4-10.4); MONOCYTES 8.6 % (2-11); NEUTROPHILS 67.3 % (40-80); RBC 4.05 10x6/uL (4.20-6.10); RDW 13.9 % (11.5-14.5); WBC 9.3 10x3/uL (4.8-10.8)
[2018-11-29 07:47] LABS: ALBUMIN 2.5 g/dL (3.4-5.0); ALKALINE PHOSPHATASE 43 U/L (46-116); ALT (SGPT) 40 U/L (10-68); CALC OSMOLALITY 281 mosm/kg (275-300); CARBON DIOXIDE 26.7 mmol/L (21.0-32.0); CHLORIDE - SERUM 105 mmol/L (98-107); CREATININE - SERUM 0.8 mg/dL (0.6-1.3); GLUCOSE 148 mg/dL (74-106); POTASSIUM - SERUM 3.5 mmol/L (3.5-5.1); PROTEIN - SERUM 5.5 g/dL (6.4-8.2); SODIUM 139 mmol/L (136-145); UREA NITROGEN 14 mg/dL (7-18); eGFR NON AFRICAN AMERICAN > 90 mL/min (90-120)
[2018-11-29 07:49] LABS: APPEARANCE CLEAR (CLEAR); BILIRUBIN NEGATIVE (NEGATIVE); COLOR YELLOW (YELLOW); GLUCOSE NEGATIVE (NEGATIVE); KETONE NEGATIVE (NEGATIVE); NITRITE NEGATIVE (NEGATIVE); PROTEIN NEGATIVE (NEGATIVE); UROBILINOGEN NORMAL (NORMAL)
[2018-11-29 08:05] LABS: PLATELET COUNT 112 10x3/uL (130-400)
--- NOTE | 2018-11-29 08:24 | NUR ---
PT UP IN CHAIR AT BEDSIDE, SPOUSE IN ROOM WITH PT, INQUIRED ON POSSIBLE DC TODAY, PER DR ESTRADA PT MAY BE DC FROM THEIR STRANDPOINT AWAITING DC PACE OK
[2018-11-29 08:30] VITALS: BP 95/58
[2018-11-29] MEDS ORDERED: STERAPRED 5MG 65 M1 PO (10:12)
[2018-11-29 10:13] LABS: INR 1.07 (0.85-1.17); PROTIME 13.4 SECONDS (11.6-15.0)
--- NOTE | 2018-11-29 11:01 | MORECARE ---
CASE MANAGEMENT DISCHARGE SUMMARY PATIENT: CATERINA HUSSEIN UNIT: [id number] ADM DATE: 11/20/18 AGE: 63 : 55 SEX: M ROOM/BED: D.2217 AUTHOR: WINSOMEDOC PHYSICIAN: REFERRING PHYSICIAN: STONE ESTRADA MD DATE OF SERVICE: 11/29/18 Discharge Plan Patient Name: CATERINA HUSSEIN Facility: [facility]:[place] : 1955 Planned Disposition: Home Anticipated Discharge Date: 11/22/18 Discharge Date: Expected LOS: 2 Initial Reviewer: [email or web address] Initial Review Date: 11/20/2018 Generated: 11/29/18 12:00 pm Comments DCP- Discharge Planning Updated by [email or web address]: Adriana Erickson on 11/29/18 9:[address] Patient Name: CATERINA HUSSEIN Encounter No: [id number] : 1955 Primary Insurance: [employer] Anticipated DC Date: 11-22-2018 Planned Disposition: Home External Planned Provider: : DCP follow-up note: Patient and family in agreement with discharge plan. No changes to plan. Case management will follow and assist as needed. Adriana Erickson DCP- Discharge Planning Updated by [id number]: Samantha Key on 11/20/18 9:[address] Patient Name: CATERINA HUSSEIN Admission Status: ER Accout number: [id number] Admission Date: 11-20-2018 : 1955 Admission Diagnosis: Attending: STONE ESTRADA Current LOS: 1 Anticipated DC Date: 11-22-2018 Planned Disposition: Home Primary Insurance: [employer] [place] [employer] Discharge Planning Comments: CM met with patient and his , Halie to complete initial dc planning assessment. CM educated patient on the CM role and verbal consent given by patient to complete assessment. Patient lives at home with his and is independent in his care at home. He is having trouble today answering questions and his is assisting him. CM asked if he normally has problems with his memory and she reported yes but it is worse today. At discharge patient plans to return home and feels this is a safe discharge. CM discussed availability of home health, rehab services, and medical equipment. Patient denied known discharge needs at this time. CM will continue to follow and will assist as needed with dc plans/needs. Electrical Products Engineer: Samantha Key RN, [facility] DCPIA - Discharge Planning Initial Assessment Updated by [email or web address]: Samantha Key on 11/20/18 10:33 am * Is the patient Alert and Oriented? Yes * How many steps to enter\exit or inside your home? None * PCP Dr. Angulo * [facility] * Preadmission Environment Home with Family * ADLs Independent * Equipment Cane Rolling Walker * List name and contact numbers for known caregivers / representatives who currently or will assist patient after discharge: Halie Hussein - - [phone] * Verbal permission to speak to the caregivers and representatives has been obtained from the patient. Yes * Community resources currently utilized None * Additional services required to return to the preadmission environment? No * Can the patient safely return to the preadmission environment? Yes * Has this patient been hospitalized within the prior 30 days at any hospital? No Last DP export: 11/20/18 9:42 a Patient Name: CATERINA HUSSEIN Page [phone] at 1101 All edits/amendments must be made on the electronic document DICTATION DATE: 11/29/18 1100 ANESTHESIOLOGY TECHNOLOGIST: BRANDON 11/29/18 1100 RPT#: [id number] DC DATE: STATUS: ADM IN [facility] [address] [place] [address] END OF REPORT
== END 2018-11-29 11:31 | disposition home or self-care (01) | DRG 26 ==
LOC: D.ER 06:31 → D.CVICU 07:51 → D.MS 07:51 → D.EDHOLD 07:51 → D.CVICU 14:56 → D.MS 11-27 13:45
PROVIDERS: Family Medicine; Neurological Surgery; ADMIT Internal Medicine Nephrology; ATTEND Internal Medicine Nephrology
PROC: 00970ZZ Drainage of Cerebral Hemisphere, Open Approach (ICD-10-PCS; principal; 2018-11-24 09:30)
DX: S06.5X0A Traumatic subdural hemorrhage without loss of consciousness, initial encounter (principal); G81.94 Hemiplegia, unspecified affecting left nondominant side; D68.2 Hereditary deficiency of other clotting factors; I69.354 Hemiplegia and hemiparesis following cerebral infarction affecting left non-dominant side; D68.51 Activated protein C resistance; F03.91 Unspecified dementia, unspecified severity, with behavioral disturbance; W19.XXXA Unspecified fall, initial encounter; E11.9 Type 2 diabetes mellitus without complications; R33.9 Retention of urine, unspecified; R26.9 Unspecified abnormalities of gait and mobility; F03.90 Unspecified dementia, unspecified severity, without behavioral disturbance, psychotic disturbance, mood disturbance, and anxiety; F06.8 Other specified mental disorders due to known physiological condition

== ENCOUNTER 2018-12-07 11:13 | Emergency (ER) | payer BC, MEDICARE ==
[~2018-12-07 11:13] MED LIST changes: -AMITRIPTYLINE100 MG; +AMITRIPTYLINE100 MG PO; +STERAPRED 5MG 65 M1 PO
[2018-12-07 11:15] VITALS: BMI 30.1
[2018-12-07 13:50] VITALS: BP 122/69
== END 2018-12-07 13:49 | disposition home or self-care (01) ==
LOC: D.ER 11:13
DX: Z87.820 Personal history of traumatic brain injury (principal); Z86.718 Personal history of other venous thrombosis and embolism

== ENCOUNTER → 2019-03-05 14:29 | Outpatient (CLI) | payer BC, MEDICARE ==
[~2019-03-05 14:29] MED LIST changes: +AMITRIPTYLINE100 MG; -AMITRIPTYLINE100 MG PO
== END | disposition home or self-care (01) ==
LOC: D.US 14:29
PROVIDERS: ATTEND Family Medicine
DX: R60.1 Generalized edema (principal)

== ENCOUNTER 2019-03-26 09:54 | Inpatient (IN) | payer BC, MEDICARE ==
[2019-03-26] VITALS (10 sets, daily range): BP systolic 114–139; BP diastolic 67–78; BMI 28.8
[~2019-03-26] VITALS: Ht 172.7 cm; Wt 85.7 kg
[~2019-03-26 09:54] MED LIST changes: -AMITRIPTYLINE100 MG; +AMITRIPTYLINE100 MG PO
[2019-03-26 11:10] LABS: BASOPHILS 0.4 % (0-2); HEMATOCRIT 38.9 % (42.0-54.0); IMMATURE GRANULOCYTES 0.2 % (0-5); LYMPHOCYTES 17.3 % (15-50); MCH 32.6 pg (26.0-34.0); MCV 90.7 fL (80.0-100.0); MEAN PLATELET VOLUME 10.4 fL (7.4-10.4); MONOCYTES 8.4 % (2-11); NEUTROPHILS 71.7 % (40-80); RBC 4.29 10x6/uL (4.20-6.10); RDW 13.6 % (11.5-14.5); WBC 4.9 10x3/uL (4.8-10.8)
[2019-03-26 11:20] LABS: PLATELET COUNT 172 10x3/uL (130-400)
--- NOTE | 2019-03-26 11:30 | NUR ---
ASSESSMENT PER FLOW SHEET. PT IS WITHOUT DISTRESS.FALL PREVENTION IN PLACE WITH PAUL MAT. CALL LIGHT IN REACH
[2019-03-26 11:38] LABS: ALBUMIN 3.5 g/dL (3.4-5.0); ANION GAP 13.9 mmol/L (8-16); BILIRUBIN - TOTAL 0.34 mg/dL (0.2-1.3); CALCIUM 9.1 mg/dL (8.5-10.1); CARBON DIOXIDE 26.2 mmol/L (21.0-32.0); CREATININE - SERUM 1.2 mg/dL (0.6-1.3); POTASSIUM - SERUM 4.1 mmol/L (3.5-5.1); PROTEIN - SERUM 7.4 g/dL (6.4-8.2)
[2019-03-26] MEDS ORDERED: ELIQUIS5 MG PO (12:13)
[2019-03-26] MEDS ORDERED: ROXICODONE15 MG PO (12:14)
[2019-03-26 13:13] LABS: APPEARANCE HAZY (CLEAR); BACTERIA FEW /hpf (NONE SEEN); BILIRUBIN NEGATIVE (NEGATIVE); COLOR DK YELLOW (YELLOW); EPITHELIAL CELLS 0-5 /hpf (0-5); GLUCOSE NEGATIVE (NEGATIVE); HYALINE CAST 0-5 /lpf (NONE SEEN); KETONE NEGATIVE (NEGATIVE); MUCUS <1+ /lpf (NONE SEEN); NITRITE NEGATIVE (NEGATIVE); PROTEIN TRACE mg/dL (NEGATIVE); SPECIFIC GRAVITY 1.025 (1.005-1.020); URIC ACID CRYSTALS 0-5 /hpf (NONE SEEN); WHITE CELLS - URINE 0-5 /hpf (0-5)
[2019-03-26 13:14] LABS: GRANULAR CAST RARE /lpf (NONE SEEN)
--- NOTE | 2019-03-26 16:15 | NUR ---
TO OR VIA BED.
--- NOTE | 2019-03-26 20:00 | NUR ---
ASSESSMENT PER FLOWSHEET. DRSG TO RT CALF C/D/I. ELEVATED ON PILLOW. TEDS AND PLEXI BOOTS ON. SR UP X2 CALL LIGHT WITHIN REACH. IV PATENT LEFT HAND WITH NS AT 75CC'S/HR. SITE CLEAR.
--- NOTE | 2019-03-26 20:30 | NUR ---
VOIDS IN URINAL.
--- NOTE | 2019-03-26 21:16 | NUR ---
C/O PAIN INCISIONAL AREA. NO PAIN MEDS ORDERED. CALLIE MARTINI COVERING FOR DR. MANCIA HERE ORDERS REC'D. DILAUDID 0.5MG IVP GIVEN FOR PAIN CONTROL. ROUTINE HS MEDS GIVEN PER OCT.
--- NOTE | 2019-03-26 23:30 | NUR ---
VOIDS IN URINAL.
[2019-03-27] VITALS: BP 125/62
--- NOTE | 2019-03-27 | NUR ---
RESTING QUIETLY DENIES NEEDS.
--- NOTE | 2019-03-27 02:00 | NUR ---
AWAKE VOIDS IN URINAL.
[2019-03-27 04:00] VITALS: BP 118/74
--- NOTE | 2019-03-27 06:04 | NUR ---
MEDS GIVEN PER MAR.
[2019-03-27 06:59] LABS: BASOPHILS 0 % (0-2); EOSINOPHILS 0 % (0-7); HEMATOCRIT 38.1 % (42.0-54.0); HEMOGLOBIN 13.2 g/dL (13.5-17.5); IMMATURE GRANULOCYTES 0.2 % (0-5); LYMPHOCYTES 11.7 % (15-50); MCH 31.1 pg (26.0-34.0); MCHC 34.6 g/dL (31.0-37.0); MCV 89.6 fL (80.0-100.0); MEAN PLATELET VOLUME 10.3 fL (7.4-10.4); MONOCYTES 5.2 % (2-11); NEUTROPHILS 82.9 % (40-80); PLATELET COUNT 194 10x3/uL (130-400); RBC 4.25 10x6/uL (4.20-6.10); RDW 13.3 % (11.5-14.5)
[2019-03-27 07:09] LABS: ALBUMIN 3.1 g/dL (3.4-5.0); ANION GAP 12.6 mmol/L (8-16); BILIRUBIN - TOTAL 0.36 mg/dL (0.2-1.3); CALCIUM 8.4 mg/dL (8.5-10.1); CARBON DIOXIDE 25.5 mmol/L (21.0-32.0); CREATININE - SERUM 1.1 mg/dL (0.6-1.3); POTASSIUM - SERUM 4.1 mmol/L (3.5-5.1)
[2019-03-27 07:19] LABS: WBC 6.3 10x3/uL (4.8-10.8)
[2019-03-27 08:59] VITALS: BP 120/71
--- NOTE | 2019-03-27 09:00 | NUR ---
ASSESSMENT PER FLOW SHEET. PT IS WITHOUT DISTRESS.CALL LIGHT IN REACH
[2019-03-27 14:23] VITALS: BP 120/60
--- NOTE | 2019-03-27 15:18 | NUR ---
OT NOTE: PT IS DOING WELL. PT COMPLETED BED MOB WITH MOD I. PT COMPLETED SIT TO STAND WITH SBA. PT COMPLETED HYGIENE TASKS WITH SBA. THANK YOU, EITAN BERRIOS
[2019-03-27 17:51] VITALS: BP 124/73
--- NOTE | 2019-03-27 20:00 | NUR ---
ASSESSMENT PER FLOWSHEET. DRSG TO RT CALF AREA CHANGED BY QUINCY RN IV PATENT LEFT HAND OF NS AT 75CC'S/HR SITE CLEAR. PT IN CONTACT ISOLATION FOR MRSA. TEDS AND PLEXI BOOTS IN PLACE. VOIDS IN URINAL.
[2019-03-27 21:16] VITALS: BP 129/80
--- NOTE | 2019-03-27 21:30 | NUR ---
MEDS GIVEN PER MAR. AGDX=[id number]. HUMALOG INSULIN 8 UNITS GIVEN SUBC PER S/S. DENIES NEEDS SR UP X2 CALL LIGHT WITHIN REACH.
--- NOTE | 2019-03-28 | NUR ---
EYES CLOSED RESPIRATIONS WITH EASE AND UNLABORED.
--- NOTE | 2019-03-28 02:39 | NUR ---
RESTING QUIETLY. DENIES NEEDS.
[2019-03-28 05:54] VITALS: BP 131/78
[2019-03-28 06:16] LABS: BASOPHILS 0.4 % (0-2); EOSINOPHILS 1.1 % (0-7); HEMATOCRIT 37.2 % (42.0-54.0); HEMOGLOBIN 12.8 g/dL (13.5-17.5); IMMATURE GRANULOCYTES 0.4 % (0-5); MCH 30.9 pg (26.0-34.0); MCHC 34.4 g/dL (31.0-37.0); MCV 89.9 fL (80.0-100.0); MEAN PLATELET VOLUME 10.1 fL (7.4-10.4); MONOCYTES 7.2 % (2-11); NEUTROPHILS 62.9 % (40-80); PLATELET COUNT 173 10x3/uL (130-400); RBC 4.14 10x6/uL (4.20-6.10); RDW 13.4 % (11.5-14.5); WBC 5.3 10x3/uL (4.8-10.8)
[2019-03-28 06:45] LABS: ALKALINE PHOSPHATASE 59 U/L (46-116); ALT (SGPT) 39 U/L (10-68); BILIRUBIN - TOTAL 0.36 mg/dL (0.2-1.3); CALCIUM 8.1 mg/dL (8.5-10.1); CARBON DIOXIDE 26.1 mmol/L (21.0-32.0); CHLORIDE - SERUM 108 mmol/L (98-107); CREATININE - SERUM 0.9 mg/dL (0.6-1.3); GLUCOSE 145 mg/dL (74-106); MAGNESIUM - SERUM 1.9 mg/dL (1.8-2.4); POTASSIUM - SERUM 3.9 mmol/L (3.5-5.1); PROTEIN - SERUM 6.8 g/dL (6.4-8.2); SODIUM 142 mmol/L (136-145); eGFR NON AFRICAN AMERICAN 90 mL/min (90-120)
[2019-03-28 06:47] LABS: CALC OSMOLALITY 284 mosm/kg (275-300); UREA NITROGEN 9 mg/dL (7-18)
--- NOTE | 2019-03-28 08:17 | NUR ---
DRESSING CHANGES ARE BEING MANAGED BY ORTHO
[2019-03-28 09:45] VITALS: BP 129/79
--- NOTE | 2019-03-28 13:30 | NUR ---
WET TO DRY DRESSING CHANGED TO RIGHT POSTERIOR KNEE
[2019-03-28 13:44] VITALS: BP 132/68
[2019-03-28 17:08] VITALS: BP 122/51
[2019-03-28 19:33] VITALS: BP 135/75
--- NOTE | 2019-03-28 20:00 | NUR ---
ASSESSMENT PER FLOWSHEET. DRESSING TO POSTERIOR RT KNEE C/D/I. IV PATENT LEFT HAND OF NS AT 75CC'S/HR. PT IN CONTACT ISOLATION. SR UPX2 CALL LIGHT WITHIN REACH.
--- NOTE | 2019-03-28 22:00 | NUR ---
VEJV=[id number] HUMALOG INSULIN 8 UNITS SUBC PER S/S.
--- NOTE | 2019-03-28 22:00 | NUR ---
MEDS GIVEN PER OCT. STERILE DRESSING CHANGE WET/DRY TO RT POSTERIOR KNEE.
--- NOTE | 2019-03-28 23:49 | NUR ---
RESTING QUITELY DENIES NEEDS.
[2019-03-29 04:00] VITALS: BP 135/78
[2019-03-29 06:44] LABS: BASOPHILS 0.7 % (0-2); EOSINOPHILS 1.3 % (0-7); HEMOGLOBIN 12.9 g/dL (13.5-17.5); IMMATURE GRANULOCYTES 0.6 % (0-5); LYMPHOCYTES 33.7 % (15-50); MCHC 34.9 g/dL (31.0-37.0); MCV 88.9 fL (80.0-100.0); MEAN PLATELET VOLUME 10.1 fL (7.4-10.4); MONOCYTES 7.9 % (2-11); NEUTROPHILS 55.8 % (40-80); PLATELET COUNT 184 10x3/uL (130-400); RBC 4.16 10x6/uL (4.20-6.10); RDW 13.4 % (11.5-14.5); WBC 5.4 10x3/uL (4.8-10.8)
[2019-03-29 06:48] LABS: ALBUMIN 2.9 g/dL (3.4-5.0); ALKALINE PHOSPHATASE 59 U/L (46-116); ALT (SGPT) 46 U/L (10-68); CALC OSMOLALITY 288 mosm/kg (275-300); CALCIUM 8.4 mg/dL (8.5-10.1); CARBON DIOXIDE 28.6 mmol/L (21.0-32.0); CHLORIDE - SERUM 111 mmol/L (98-107); CREATININE - SERUM 0.9 mg/dL (0.6-1.3); GLUCOSE 150 mg/dL (74-106); MAGNESIUM - SERUM 1.9 mg/dL (1.8-2.4); POTASSIUM - SERUM 4.1 mmol/L (3.5-5.1); PROTEIN - SERUM 6.4 g/dL (6.4-8.2); SODIUM 144 mmol/L (136-145); UREA NITROGEN 9 mg/dL (7-18); eGFR NON AFRICAN AMERICAN 90 mL/min (90-120)
[2019-03-29 08:38] VITALS: BP 123/76
--- NOTE | 2019-03-29 08:50 | NUR ---
PATIENT IN BED WITH IV INTACT. NO COMPLAINTS OR SIGNS OF DISTRESS. FAMILY AT BEDSIDE. CALL LIGHT WITHIN REACH.
[2019-03-29 09:37] VITALS: Ht 172.7 cm; Wt 85.7 kg
[2019-03-29 11:58] VITALS: BP 128/80
--- NOTE | 2019-03-29 12:45 | MORECARE ---
CASE MANAGEMENT DISCHARGE SUMMARY PATIENT: CATERINA BROWNING UNIT: [id number] ADM DATE: 03/26/19 AGE: 64 : 55 SEX: M ROOM/BED: D.2220 AUTHOR: WINSOMEDOC PHYSICIAN: REFERRING PHYSICIAN: NALDO MANCIA DO DATE OF SERVICE: 03/29/19 Discharge Plan Patient Name: CATERINA BROWNING Facility: [facility]:[place] : 1955 Planned Disposition: Home Anticipated Discharge Date: Discharge Date: Expected LOS: Initial Reviewer: [email or web address] Initial Review Date: 03/26/2019 Generated: 03/29/19 1:45 pm Comments DCP- Discharge Planning Updated by [email or web address]: Adriana Erickson on 03/29/19 11:[address] Patient Name: CATERINA BROWNING Admission Status: Urgent Accout number: [id number] Admission Date: 03-26-2019 : 1955 Admission Diagnosis:CUTANEOUS ABSCESS OF RIGHT LOWER LIMB Attending: NALDO MANCIA Current LOS: 3 Anticipated DC Date: Planned Disposition: Home Primary Insurance: [employer] [facility] Discharge Planning Comments: CM met with patient to complete initial dc planning assessment. CM educated patient on the CM role and verbal consent given by patient to complete assessment. Patient lives at home with his where he is independent with his care. At discharge patient plans to return home and feels this is a safe discharge. CM discussed availability of home health, rehab services, and medical equipment. He has a walker and a cane that he uses at times. He did not want home health. He said that his daughter or his son will do his dressing changes. Refusal form signed and placed in chart. He stated his will be the one to drive him home when he is DC Patient denied known discharge needs at this time. CM will continue to follow and will assist as needed with dc plans/needs. Director Business Development: Adriana Erickson DCPIA - Discharge Planning Initial Assessment Updated by [email or web address]: Adriana Erickson on 03/29/19 12:43 pm * Is the patient Alert and Oriented? Yes * How many steps to enter\exit or inside your home? * PCP FARO * [facility] * Preadmission Environment Home with Family * ADLs Independent * Equipment Cane Rolling Walker * List name and contact numbers for known caregivers / representatives who currently or will assist patient after discharge: CRISTOFER () [phone] * Verbal permission to speak to the caregivers and representatives has been obtained from the patient. N/A * Community resources currently utilized None * Additional services required to return to the preadmission environment? No * Can the patient safely return to the preadmission environment? Yes * Has this patient been hospitalized within the prior 30 days at any hospital? No Coverage Notice Reviewer: [email or web address] Rula Erickson Notice Issued Date-Time: 03/29/2019 12:40 Notice Type: Patient Choice Letter Notice Delivered To: Patient Relationship to Patient: Care Attendant Name: Delivery Method: - Cherry Days: Prior Verbal Notification: Recipient Understood Notice: Yes Recipient Signature: Yes Med Rec Note Co-signed by Attending: Coverage Notice Comment: REFUSED HOME HEALTH Patient Name: CATERINA BROWNING Page [phone] at 1245 All edits/amendments must be made on the electronic document DICTATION DATE: 03/29/19 1245 PIPE LINE MAINTENANCE SUPERVISOR: BRANDON 03/29/19 1245 RPT#: [id number] DC DATE: STATUS: ADM IN [facility] [address] [place] [address] END OF REPORT
[2019-03-29] MEDS ORDERED: SULFAMETHOXAZOL1 TA2 PO (16:00)
--- NOTE | 2019-03-29 17:36 | NUR ---
PATIENT ESCORTED OUT OF HOSPITAL VIA WC WITH PERSONAL BELONGS TO PRIVATE VEHICLE
--- NOTE | 2019-03-29 17:37 | NUR ---
PATIENT RECIEVED DC INSTRUCTIONS. VERBALIZED UNDERSTANDING. NO QUESTIONS AT THIS TIME. IV REMOVED EARLIER BY CRISTOFER OCONNELL WELL INSTRUCTIONS ON WOUND CARE. PATIENT AND BOTH VERBALIZED UNDERSTANDING WITH QUESTIONS ANSWERED. CALL LIGHT WITHIN REACH.
[2019-04-04 17:08] LABS: AEROBE ID Final report (())
--- NOTE | 2019-04-07 12:01 | MORECARE ---
CASE MANAGEMENT DISCHARGE SUMMARY PATIENT: CATERINA BROWNING UNIT: [id number] ADM DATE: 03/26/19 AGE: 64 : 55 SEX: M ROOM/BED: D.2220 AUTHOR: PIETER SCHUMACHER PHYSICIAN: REFERRING PHYSICIAN: NALDO MANCIA DO DATE OF SERVICE: 04/07/19 Discharge Plan Patient Name: CATERINA BROWNING Facility: [facility]:[place] : 1955 Planned Disposition: Home Anticipated Discharge Date: Discharge Date: 03/29/2019 Expected LOS: Initial Reviewer: [email or web address] Initial Review Date: 03/26/2019 Generated: 04/07/19 1:00 pm Comments DCP- Discharge Planning Updated by [email or web address]: Adriana Erickson on 03/29/19 11:[address] Patient Name: CATERINA BROWNING Admission Status: Urgent Accout number: [id number] Admission Date: 03-26-2019 : 1955 Admission Diagnosis:CUTANEOUS ABSCESS OF RIGHT LOWER LIMB Attending: NALDO MANCIA Current LOS: 3 Anticipated DC Date: Planned Disposition: Home Primary Insurance: [employer] [facility] Discharge Planning Comments: CM met with patient to complete initial dc planning assessment. CM educated patient on the CM role and verbal consent given by patient to complete assessment. Patient lives at home with his where he is independent with his care. At discharge patient plans to return home and feels this is a safe discharge. CM discussed availability of home health, rehab services, and medical equipment. He has a walker and a cane that he uses at times. He did not want home health. He said that his daughter or his son will do his dressing changes. Refusal form signed and placed in chart. He stated his will be the one to drive him home when he is DC Patient denied known discharge needs at this time. CM will continue to follow and will assist as needed with dc plans/needs. Sleeve Separator: Adriana Erickson DCPIA - Discharge Planning Initial Assessment Updated by [id number]: Adriana Erickson on 03/29/19 12:43 pm * Is the patient Alert and Oriented? Yes * How many steps to enter\exit or inside your home? * PCP FARO * [facility] * Preadmission Environment Home with Family * ADLs Independent * Equipment Cane Rolling Walker * List name and contact numbers for known caregivers / representatives who currently or will assist patient after discharge: CRISTOFER () [phone] * Verbal permission to speak to the caregivers and representatives has been obtained from the patient. N/A * Community resources currently utilized None * Additional services required to return to the preadmission environment? No * Can the patient safely return to the preadmission environment? Yes * Has this patient been hospitalized within the prior 30 days at any hospital? No Coverage Notice Reviewer: [id number] Rula Erickson Notice Issued Date-Time: 03/29/2019 12:40 Notice Type: Patient Choice Letter Notice Delivered To: Patient Relationship to Patient: Scientific Programmer Name: Delivery Method: - Cherry Days: Prior Verbal Notification: Recipient Understood Notice: Yes Recipient Signature: Yes Med Rec Note Co-signed by Attending: Coverage Notice Comment: REFUSED HOME HEALTH Last DP export: 03/29/19 11:45 a Patient Name: CATERINA BROWNING Page [phone] at 1201 All edits/amendments must be made on the electronic document DICTATION DATE: 04/07/19 1200 INTERNATIONAL MARKETING INTERN: BRANDON 04/07/19 1200 RPT#: [id number] DC DATE:03/29/19 STATUS: DIS IN [facility] [address] [place] [address] END OF REPORT
== END 2019-03-29 18:37 | disposition home or self-care (01) | DRG 908 ==
LOC: D.MS 09:54
PROVIDERS: Family Medicine; Orthopaedic Surgery; ADMIT Family Medicine; ATTEND Family Medicine
PROC: 0J9N0ZZ Drainage of Right Lower Leg Subcutaneous Tissue and Fascia, Open Approach (ICD-10-PCS; principal; 2019-03-26 16:00)
DX: T63.301A Toxic effect of unspecified spider venom, accidental (unintentional), initial encounter (principal); L02.415 Cutaneous abscess of right lower limb; D68.51 Activated protein C resistance; B95.62 Methicillin resistant Staphylococcus aureus infection as the cause of diseases classified elsewhere; W57.XXXA Bitten or stung by nonvenomous insect and other nonvenomous arthropods, initial encounter; E11.65 Type 2 diabetes mellitus with hyperglycemia; I10 Essential (primary) hypertension; F03.90 Unspecified dementia, unspecified severity, without behavioral disturbance, psychotic disturbance, mood disturbance, and anxiety

== ENCOUNTER 2019-04-08 10:33 | Inpatient (IN) | payer BC, MEDICARE ==
[~2019-04-08] VITALS: Ht 172.7 cm; Wt 81.6 kg
[~2019-04-08 10:33] MED LIST changes: +ELIQUIS5 MG PO; +ROXICODONE15 MG PO; +SULFAMETHOXAZOL1 TA2 PO
--- NOTE | 2019-04-08 11:16 | NUR ---
POC GLUCOSE 120
[2019-04-08 11:18] LABS: BASOPHILS 0.6 % (0-2); EOSINOPHILS 1.7 % (0-7); HEMATOCRIT 36.9 % (42.0-54.0); HEMOGLOBIN 12.6 g/dL (13.5-17.5); IMMATURE GRANULOCYTES 0.6 % (0-5); LYMPHOCYTES 30.2 % (15-50); MCHC 34.1 g/dL (31.0-37.0); MCV 90.9 fL (80.0-100.0); MEAN PLATELET VOLUME 9.5 fL (7.4-10.4); MONOCYTES 18.4 % (2-11); NEUTROPHILS 48.5 % (40-80); PLATELET COUNT 122 10x3/uL (130-400); RBC 4.06 10x6/uL (4.20-6.10); RDW 13.9 % (11.5-14.5); WBC 3.5 10x3/uL (4.8-10.8)
[2019-04-08 11:25] LABS: APTT 33.6 SECONDS (22.8-39.4); INR 1.12 (0.85-1.17); PROTIME 13.9 SECONDS (11.6-15.0)
[2019-04-08 11:31] LABS: ALBUMIN 3.4 g/dL (3.4-5.0); ALKALINE PHOSPHATASE 75 U/L (46-116); ALT (SGPT) 41 U/L (10-68); BILIRUBIN - TOTAL 0.48 mg/dL (0.2-1.3); CALC OSMOLALITY 278 mosm/kg (275-300); CALCIUM 8.5 mg/dL (8.5-10.1); CARBON DIOXIDE 31.5 mmol/L (21.0-32.0); CHLORIDE - SERUM 104 mmol/L (98-107); CREATININE - SERUM 1.3 mg/dL (0.6-1.3); GLUCOSE 132 mg/dL (74-106); POTASSIUM - SERUM 4.5 mmol/L (3.5-5.1); PROTEIN - SERUM 6.7 g/dL (6.4-8.2); SODIUM 140 mmol/L (136-145); UREA NITROGEN 8 mg/dL (7-18); eGFR NON AFRICAN AMERICAN 59 mL/min (90-120)
[2019-04-08 11:40] LABS: CREATINE KINASE 50 UL (21-232); MAGNESIUM - SERUM 1.8 mg/dL (1.8-2.4); THYROID STIMULATING HORMONE 0.66 uIU/mL (0.36-3.74); TROPONIN-I < 0.017 ng/mL (0.000-0.060)
[2019-04-08 15:52] LABS: % SATURATION 20 % (15-55); IRON 57 ug/dl (35-150); TOTAL IRON BIND CAPACITY 278 ug/dl (260-445); UNSAT IRON BIND CAPACITY 221 ug/dl (150-375)
[2019-04-08 17:25] VITALS: BMI 27.4
[2019-04-08 20:00] VITALS: BP 113/70
--- NOTE | 2019-04-08 20:00 | NUR ---
A/O AND ANSWERS QUESTION APPROPRIATELY. NO WEAKNESS NOTED IN BOTH SIDES OF THE BODY. SOME DROWINESS NOTED BUT IS AROUSED BY NAME. IV TO THE RT AC, CDI AND SL. PT DENIES PAIN OR OTHER NEEDS AT THIS TIME. WILL CONTINUE WITH PLAN OF CARE.
[2019-04-09] VITALS: BP 124/76
[2019-04-09 03:37] LABS: APPEARANCE CLEAR (CLEAR); BILIRUBIN NEGATIVE (NEGATIVE); COLOR YELLOW (YELLOW); GLUCOSE NEGATIVE (NEGATIVE); KETONE NEGATIVE (NEGATIVE); NITRITE NEGATIVE (NEGATIVE); PROTEIN NEGATIVE (NEGATIVE); SPECIFIC GRAVITY 1.005 (1.005-1.020); UROBILINOGEN NORMAL (NORMAL)
[2019-04-09 05:28] VITALS: BP 115/67
[2019-04-09 06:46] LABS: BASOPHILS 0.3 % (0-2); EOSINOPHILS 2.9 % (0-7); HEMATOCRIT 37.6 % (42.0-54.0); HEMOGLOBIN 12.9 g/dL (13.5-17.5); IMMATURE GRANULOCYTES 0.3 % (0-5); LYMPHOCYTES 32.1 % (15-50); MCH 30.9 pg (26.0-34.0); MCHC 34.3 g/dL (31.0-37.0); MCV 90.2 fL (80.0-100.0); MEAN PLATELET VOLUME 10.7 fL (7.4-10.4); MONOCYTES 11.1 % (2-11); NEUTROPHILS 53.3 % (40-80); RBC 4.17 10x6/uL (4.20-6.10); WBC 3.4 10x3/uL (4.8-10.8)
[2019-04-09 06:48] LABS: PLATELET COUNT 149 10x3/uL (130-400)
[2019-04-09 07:05] LABS: ALBUMIN 3.2 g/dL (3.4-5.0); ALKALINE PHOSPHATASE 67 U/L (46-116); ALT (SGPT) 42 U/L (10-68); BILIRUBIN - TOTAL 0.35 mg/dL (0.2-1.3); CALC OSMOLALITY 280 mosm/kg (275-300); CALCIUM 8.4 mg/dL (8.5-10.1); CARBON DIOXIDE 28.2 mmol/L (21.0-32.0); CHLORIDE - SERUM 104 mmol/L (98-107); MAGNESIUM - SERUM 1.9 mg/dL (1.8-2.4); POTASSIUM - SERUM 4.4 mmol/L (3.5-5.1); PROTEIN - SERUM 6.5 g/dL (6.4-8.2); SODIUM 139 mmol/L (136-145); UREA NITROGEN 8 mg/dL (7-18); eGFR NON AFRICAN AMERICAN 80 mL/min (90-120)
[2019-04-09 07:06] LABS: GLUCOSE 186 mg/dL (74-106)
[2019-04-09 08:35] VITALS: Ht 172.7 cm; Wt 81.6 kg
[2019-04-09 08:55] VITALS: BP 116/66
--- NOTE | 2019-04-09 10:21 | NUR ---
PT ALERT X 4. BREATH SOUNDS CLEAR BILAT. TELEMETRY IN PLACE. STRENGTH EVEN BILAT. PT REPORTING PAIN OF 10/10, MEDICATED PER ORDERS, WILL MONITOR. IV TO RIGHT AC, SALINE LOCKED. FAMILY AT BEDSIDE. BED LOW, CALL LIGHT IN REACH. NO OTHER NEEDS AT THIS TIME.
[2019-04-09] MEDS ORDERED: DONEPEZIL HCL10 MG PO (11:52)
[2019-04-09 12:27] VITALS: BP 130/75
--- NOTE | 2019-04-09 13:05 | MORECARE ---
CASE MANAGEMENT DISCHARGE SUMMARY PATIENT: CATERINA BROWNING UNIT: [id number] ADM DATE: 04/08/19 AGE: 64 : 55 SEX: M ROOM/BED: D.2215 AUTHOR: PIETER SCHUMACHER PHYSICIAN: REFERRING PHYSICIAN: STONE ESTRADA MD DATE OF SERVICE: 04/09/19 Discharge Plan Patient Name: CATERINA BROWNING Facility: [facility]:[place] : 1955 Planned Disposition: Home Anticipated Discharge Date: 04/09/19 Discharge Date: Expected LOS: 1 Initial Reviewer: [email or web address] Initial Review Date: 04/09/2019 Generated: 04/09/19 2:05 pm DCPIA - Discharge Planning Initial Assessment Updated by [email or web address]: Jenelle Valencia on 04/09/19 1:04 pm * Is the patient Alert and Oriented? Yes * How many steps to enter\exit or inside your home? 0/0 * PCP Dr. Anguol * [facility] * Preadmission Environment Home with Family * ADLs Partial Dependent * Partial ADLs (Assistance needed) Ambulation * Equipment Cane Walker * List name and contact numbers for known caregivers / representatives who currently or will assist patient after discharge: Halie vutp - [phone] * Verbal permission to speak to the caregivers and representatives has been obtained from the patient. Yes * Community resources currently utilized None * Additional services required to return to the preadmission environment? No * Can the patient safely return to the preadmission environment? Yes * Has this patient been hospitalized within the prior 30 days at any hospital? Yes Patient Name: CATERINA BROWNING Page [phone] at 1305 All edits/amendments must be made on the electronic document DICTATION DATE: 04/09/19 1305 OUTPATIENT PROGRAM COORDINATOR: BRANDON 04/09/19 1305 RPT#: [id number] DC DATE: STATUS: ADM IN [facility] [address] [place] [address] END OF REPORT
--- NOTE | 2019-04-09 13:14 | MORECARE ---
CASE MANAGEMENT DISCHARGE SUMMARY PATIENT: CATERINA BROWNING UNIT: [id number] ADM DATE: 04/08/19 AGE: 64 : 55 SEX: M ROOM/BED: D.2215 AUTHOR: WINSOME,DOC PHYSICIAN: REFERRING PHYSICIAN: STONE ESTRADA MD DATE OF SERVICE: 04/09/19 Discharge Plan Patient Name: CATERINA BROWNING Facility: [facility]:[place] : 1955 Planned Disposition: Home Anticipated Discharge Date: 04/09/19 Discharge Date: Expected LOS: 1 Initial Reviewer: [email or web address] Initial Review Date: 04/09/2019 Generated: 04/09/19 2:13 pm Comments DCP- Discharge Planning Updated by [email or web address]: Jenelle Valencia on 04/09/19 12:[address] Patient Name: CATERINA BROWNING Admission Status: ER Accout number: [id number] Admission Date: 04-08-2019 : 1955 Admission Diagnosis: Attending: STONE ESTRADA Current LOS: 1 Anticipated DC Date: 04-09-2019 Planned Disposition: Home Primary Insurance: [employer] [facility] Discharge Planning Comments: CM met with patient to complete initial dc planning assessment. CM educated patient on the CM role and verbal consent given by patient to complete assessment. Patient lives at home with his . At discharge patient plans to return and feels this is a safe discharge. CM discussed availability of home health, rehab services, and medical equipment. Patient denied known discharge needs at this time. CM will continue to follow and will assist as needed with dc plans/needs. Chemical Manager: Jenelle Valencia DCPIA - Discharge Planning Initial Assessment Updated by [email or web address]: Jenelle Valencia on 04/09/19 1:04 pm * Is the patient Alert and Oriented? Yes * How many steps to enter\exit or inside your home? 0/0 * PCP Dr. Angulo * [facility] * Preadmission Environment Home with Family * ADLs Partial Dependent * Partial ADLs (Assistance needed) Ambulation * Equipment Cane Walker * List name and contact numbers for known caregivers / representatives who currently or will assist patient after discharge: Halie - - [phone] * Verbal permission to speak to the caregivers and representatives has been obtained from the patient. Yes * Community resources currently utilized None * Additional services required to return to the preadmission environment? No * Can the patient safely return to the preadmission environment? Yes * Has this patient been hospitalized within the prior 30 days at any hospital? Yes Last DP export: 04/09/19 12:05 pm Patient Name: CATERINA BROWNING Page [phone] at 1314 All edits/amendments must be made on the electronic document DICTATION DATE: 04/09/19 1313 VAT HOUSE LABORER: BRANDON 04/09/19 1313 RPT#: [id number] DC DATE: STATUS: ADM IN [facility] [address] [place] [address] END OF REPORT
--- NOTE | 2019-04-09 16:02 | NUR ---
DISCHARGE PAPERWORK SIGNED, ALL QUESTIONS ANSWERED. IV TO RIGHT AC DC'D, TIP INTACT. ESCORTED OUT BY WHEELCHAIR.
--- NOTE | 2019-04-10 13:10 | MORECARE ---
CASE MANAGEMENT DISCHARGE SUMMARY PATIENT: CATERINA BROWNING UNIT: [id number] ADM DATE: 04/08/19 AGE: 64 : 55 SEX: M ROOM/BED: D.2215 AUTHOR: WINSOME,DOC PHYSICIAN: REFERRING PHYSICIAN: STONE ESTRADA MD DATE OF SERVICE: 04/10/19 Discharge Plan Patient Name: CATERINA BROWNING Facility: [facility]:[place] : 1955 Planned Disposition: Home Anticipated Discharge Date: 04/09/19 Discharge Date: 04/09/2019 Expected LOS: 1 Initial Reviewer: [email or web address] Initial Review Date: 04/09/2019 Generated: 04/10/19 2:10 pm Comments DCP- Discharge Planning Updated by [email or web address]: Jenelle Valencia on 04/09/19 12:[address] Patient Name: CATERINA BROWNING Admission Status: ER Accout number: [id number] Admission Date: 04-08-2019 : 1955 Admission Diagnosis: Attending: STONE ESTRADA Current LOS: 1 Anticipated DC Date: 04-09-2019 Planned Disposition: Home Primary Insurance: [employer] [facility] Discharge Planning Comments: CM met with patient to complete initial dc planning assessment. CM educated patient on the CM role and verbal consent given by patient to complete assessment. Patient lives at home with his . At discharge patient plans to return and feels this is a safe discharge. CM discussed availability of home health, rehab services, and medical equipment. Patient denied known discharge needs at this time. CM will continue to follow and will assist as needed with dc plans/needs. Men'S Garment Fitter: Jenelle Valencia DCPIA - Discharge Planning Initial Assessment Updated by [id number]: Jenelle Valencia on 04/09/19 1:04 pm * Is the patient Alert and Oriented? Yes * How many steps to enter\exit or inside your home? 0/0 * PCP Dr. Angulo * [facility] * Preadmission Environment Home with Family * ADLs Partial Dependent * Partial ADLs (Assistance needed) Ambulation * Equipment Cane Walker * List name and contact numbers for known caregivers / representatives who currently or will assist patient after discharge: Halieuab [facility] - [phone] * Verbal permission to speak to the caregivers and representatives has been obtained from the patient. Yes * Community resources currently utilized None * Additional services required to return to the preadmission environment? No * Can the patient safely return to the preadmission environment? Yes * Has this patient been hospitalized within the prior 30 days at any hospital? Yes Last DP export: 04/09/19 12:14 pm Patient Name: CATERINA BROWNING Page [phone] at 1310 All edits/amendments must be made on the electronic document DICTATION DATE: 04/10/19 1310 ENVIRONMENTAL ENGINEERING PROFESSOR: BRANDON 04/10/19 1310 RPT#: [id number] DC DATE:04/09/19 STATUS: DIS IN [facility] [address] [place] [address] END OF REPORT
== END 2019-04-09 16:04 | disposition home or self-care (01) | DRG 65 ==
LOC: D.ER 10:33 → D.MS 13:09
PROVIDERS: Family Medicine; ADMIT Internal Medicine Nephrology; ATTEND Internal Medicine Nephrology
DX: I63.9 Cerebral infarction, unspecified (principal); D68.51 Activated protein C resistance; I69.354 Hemiplegia and hemiparesis following cerebral infarction affecting left non-dominant side; D61.818 Other pancytopenia; F03.90 Unspecified dementia, unspecified severity, without behavioral disturbance, psychotic disturbance, mood disturbance, and anxiety; R26.9 Unspecified abnormalities of gait and mobility; E11.65 Type 2 diabetes mellitus with hyperglycemia; D64.9 Anemia, unspecified; R33.9 Retention of urine, unspecified; S80.861A Insect bite (nonvenomous), right lower leg, initial encounter

== ENCOUNTER → 2019-04-16 15:19 | Outpatient (CLI) | payer BC, MEDICARE ==
[2019-04-09 08:35] VITALS: BMI 27.3
[~2019-04-16 15:19] MED LIST changes: +DONEPEZIL HCL10 MG PO
== END | disposition home or self-care (01) ==
LOC: D.US 15:19
PROVIDERS: ATTEND Internal Medicine Medical Oncology
DX: D68.59 Other primary thrombophilia (principal); R60.0 Localized edema

== ENCOUNTER → 2019-06-21 08:43 | Outpatient (CLI) | payer BC, MEDICARE ==
[2019-04-09 08:35] VITALS: BMI 27.3
== END | disposition home or self-care (01) ==
LOC: D.US 08:43
PROVIDERS: ATTEND Family Medicine
DX: N50.89 Other specified disorders of the male genital organs (principal)

== ENCOUNTER → 2019-11-05 13:00 | Outpatient (CLI) | payer BC, MEDICARE ==
[2019-04-09 08:35] VITALS: BMI 27.3
== END | disposition home or self-care (01) ==
LOC: D.US 13:00
PROVIDERS: ATTEND Urology
DX: N45.1 Epididymitis (principal)

== ENCOUNTER 2020-04-06 09:46 | Inpatient (IN) | payer MEDICARE, BC ==
[~2020-04-06] VITALS: Ht 172.7 cm; Wt 88.2 kg
[2020-04-06 10:20] LABS: BASOPHILS 0 % (0-2); EOSINOPHILS 0 % (0-7); HEMATOCRIT 38.1 % (42.0-54.0); HEMOGLOBIN 13.2 g/dL (13.5-17.5); IMMATURE GRANULOCYTES 0.3 % (0-5); LYMPHOCYTES 14.1 % (15-50); MCHC 34.6 g/dL (31.0-37.0); MCV 92.3 fL (80.0-100.0); MEAN PLATELET VOLUME 10.1 fL (7.4-10.4); MONOCYTES 7.6 % (2-11); PLATELET COUNT 100 10x3/uL (130-400); RBC 4.13 10x6/uL (4.20-6.10); RDW 13.2 % (11.5-14.5); WBC 3.8 10x3/uL (4.8-10.8)
--- NOTE | 2020-04-06 10:23 | NUR ---
EDP REBECCA OG AT BEDSIDE AT THIS TIME
[2020-04-06 10:24] VITALS: BP 121/68
--- NOTE | 2020-04-06 10:27 | NUR ---
PT TRANSPORTED TO CT AT THIS TIME
[2020-04-06 10:32] LABS: APTT 35.2 SECONDS (22.8-39.4); INR 1.1 (0.85-1.17); PROTIME 14.1 SECONDS (11.6-15.0)
[2020-04-06 10:33] LABS: CALC OSMOLALITY 285 mosm/kg (275-300); CALCIUM 8.4 mg/dL (8.5-10.1); CHLORIDE - SERUM 101 mmol/L (98-107); CREATININE - SERUM 1.5 mg/dL (0.6-1.3); POTASSIUM - SERUM 4.8 mmol/L (3.5-5.1); SODIUM 136 mmol/L (136-145); UREA NITROGEN 23 mg/dL (7-18); eGFR NON AFRICAN AMERICAN 50 mL/min (90-120)
[2020-04-06 10:34] LABS: GLUCOSE 280 mg/dL (74-106)
[2020-04-06 10:51] LABS: ALBUMIN 3.1 g/dL (3.4-5.0); ALKALINE PHOSPHATASE 46 U/L (30-120); ALT (SGPT) 65 U/L (10-68); BILIRUBIN - TOTAL 0.79 mg/dL (0.2-1.3); CKMB 0.3 U/L (0.0-3.6); MAGNESIUM - SERUM 1.9 mg/dL (1.8-2.4); PROTEIN - SERUM 7.1 g/dL (6.4-8.2); THYROID STIMULATING HORMONE 0.51 uIU/mL (0.36-3.74)
[2020-04-06 10:54] LABS: CREATINE KINASE 3054 UL (21-232)
--- NOTE | 2020-04-06 11:05 | NUR ---
LACTIC ACID 2.1 DR[address] SELLERS.
[2020-04-06 11:13] LABS: BILIRUBIN NEGATIVE (NEGATIVE); KETONE NEGATIVE (NEGATIVE); NITRITE NEGATIVE (NEGATIVE); UROBILINOGEN NORMAL (NORMAL)
[2020-04-06 11:15] LABS: BACTERIA FEW /hpf (NONE SEEN); WHITE CELLS - URINE 0-5 /hpf (0-5)
[2020-04-06 11:17] LABS: UDS - AMPHET NEGATIVE QUAL (NEGATIVE); UDS - BARB NEGATIVE QUAL (NEGATIVE); UDS - BENZO NEGATIVE QUAL (NEGATIVE); UDS - COCAINE NEGATIVE QUAL (NEGATIVE); UDS - OPIATE POSITIVE QUAL (NEGATIVE); UDS - PCP NEGATIVE QUAL (NEGATIVE); UDS - THC NEGATIVE QUAL (NEGATIVE)
[2020-04-06 11:57] VITALS: BP 109/58
[2020-04-06 13:41] LABS: CKMB 0.3 U/L (0.0-3.6); CREATINE KINASE 2644 UL (21-232); TROPONIN-I 0.051 ng/mL (0.000-0.060)
[2020-04-06 14:48] VITALS: BP 115/70
--- NOTE | 2020-04-06 15:12 | NUR ---
PT ARRIVED TO UNIT VIA CART. BRIANDA LUCIO. INFORMED UNABLE TO STAY IN ROOM TILL RESULTS BACK AND NEGATIVE. SHE IS GOING TO BRING MED LIST FROM HOME TO UPDATE MED REC. STATES HE DID NOT GET ANY MEDS TODAY. OXYGEN AT 4 LITERS.
[2020-04-06 16:05] VITALS: BP 115/70; BMI 30.4
[2020-04-06 19:06] LABS: CKMB 0.5 U/L (0.0-3.6); TROPONIN-I 0.023 ng/mL (0.000-0.060)
[2020-04-06 19:09] LABS: CREATINE KINASE 2548 UL (21-232)
[2020-04-06 20:00] VITALS: BP 133/72
[2020-04-07] VITALS (8 sets, daily range): BP systolic 116–137; BP diastolic 60–81; BMI 30.4
[2020-04-07 01:16] LABS: CKMB 0.4 U/L (0.0-3.6); TROPONIN-I 0.022 ng/mL (0.000-0.060)
[2020-04-07 01:17] LABS: CREATINE KINASE 2394 UL (21-232)
[2020-04-07 08:06] LABS: HEMOGLOBIN 14.6 g/dL (13.5-17.5); LYMPHOCYTES 10.9 % (15-50); MCH 31.9 pg (26.0-34.0); MCHC 34.8 g/dL (31.0-37.0); MCV 91.9 fL (80.0-100.0); MEAN PLATELET VOLUME 9.4 fL (7.4-10.4); NEUTROPHILS 84.2 % (40-80); PLATELET COUNT 82 10x3/uL (130-400); RBC 4.57 10x6/uL (4.20-6.10); WBC 4.5 10x3/uL (4.8-10.8)
[2020-04-07 10:07] LABS: PLATELET ESTIMATE DECREASED
[2020-04-07 10:47] LABS: ALBUMIN 3.2 g/dL (3.4-5.0); ALKALINE PHOSPHATASE 45 U/L (30-120); ALT (SGPT) 50 U/L (10-68); CARBON DIOXIDE 24.9 mmol/L (21.0-32.0); CHLORIDE - SERUM 100 mmol/L (98-107); CREATININE - SERUM 1.2 mg/dL (0.6-1.3); GLUCOSE 254 mg/dL (74-106); MAGNESIUM - SERUM 1.9 mg/dL (1.8-2.4); PROTEIN - SERUM 7.4 g/dL (6.4-8.2); SODIUM 136 mmol/L (136-145); eGFR NON AFRICAN AMERICAN 64 mL/min (90-120)
[2020-04-07 10:48] LABS: CALC OSMOLALITY 280 mosm/kg (275-300); CKMB 0.3 U/L (0.0-3.6); CREATINE KINASE 2102 UL (21-232); POTASSIUM - SERUM 3.8 mmol/L (3.5-5.1); UREA NITROGEN 13 mg/dL (7-18)
--- NOTE | 2020-04-07 22:42 | NUR ---
Recieved Pt from medical floor. Pt is COVID+ and was reported to have been short of breath and having a low O2 sat on the floor. The Pt helped transfer himself to the ICU bed and was placed on a non-rebreather. The Pt was placed on the monitors and his VS were all within normal limits (see flow sheet). His O2 sat is now 97%, no acute distress noted, call light in reach, bed in low position.
[2020-04-08] VITALS (24 sets, daily range): BP systolic 83–157; BP diastolic 49–99
[2020-04-08 04:33] LABS: BASOPHILS 0 % (0-2); EOSINOPHILS 0 % (0-7); HEMATOCRIT 38.4 % (42.0-54.0); HEMOGLOBIN 13.1 g/dL (13.5-17.5); IMMATURE GRANULOCYTES 0.3 % (0-5); LYMPHOCYTES 7.3 % (15-50); MCHC 34.1 g/dL (31.0-37.0); MCV 90.8 fL (80.0-100.0); MEAN PLATELET VOLUME 10.1 fL (7.4-10.4); MONOCYTES 4.1 % (2-11); NEUTROPHILS 88.3 % (40-80); PLATELET COUNT 109 10x3/uL (130-400); RBC 4.23 10x6/uL (4.20-6.10); RDW 13.2 % (11.5-14.5); WBC 3.1 10x3/uL (4.8-10.8)
[2020-04-08 05:25] LABS: ALBUMIN 2.7 g/dL (3.4-5.0); ALKALINE PHOSPHATASE 45 U/L (30-120); ALT (SGPT) 45 U/L (10-68); BILIRUBIN - TOTAL 0.67 mg/dL (0.2-1.3); CALC OSMOLALITY 288 mosm/kg (275-300); CALCIUM 8.3 mg/dL (8.5-10.1); CARBON DIOXIDE 27.2 mmol/L (21.0-32.0); CHLORIDE - SERUM 105 mmol/L (98-107); GLUCOSE 263 mg/dL (74-106); PHOSPHOROUS 2.8 mg/dL (2.5-4.9); POTASSIUM - SERUM 4.2 mmol/L (3.5-5.1); PROTEIN - SERUM 6.6 g/dL (6.4-8.2); SODIUM 140 mmol/L (136-145); UREA NITROGEN 15 mg/dL (7-18); eGFR NON AFRICAN AMERICAN 80 mL/min (90-120)
[2020-04-08 05:34] LABS: CREATINE KINASE 1154 UL (21-232)
--- NOTE | 2020-04-08 17:23 | NUR ---
PT PULLED OFF VAPOTHERM. O2 SAT 50% AND PT CYONOTIC, NON REBREATHER APPLIED AND PT VERY CONFUSED. RT NOTIFIED TO OBTAIN ABG. AFTER A FEW MINUTES, THE PT STARTED TO TURN PINK IN COLOR. 85% SPO2 AND TACHYPNIC 40 RESP/MIN. DR STACY THOMAS. NOTIFY ANESTESIA TO INTUBATE. WILL CALL THE PTS .
--- NOTE | 2020-04-08 17:27 | NUR ---
ATTEMPTED TO CALL THE PTS MULTIPLE TIMES WITH NO ANSWER. ANESTESIA NOTIFIED.
--- NOTE | 2020-04-08 18:00 | NUR ---
ANESTESIA AT THE PTS BEDSIDE. 7.[address] 24 AT THE LIP. BILATERAL BREATHS SOUNDS ASCULTATED. FC PLACED WITH CLEAR, YELLOW URINE NOTED. CXR ORDRED.
--- NOTE | 2020-04-08 18:03 | NUR ---
PT GAVE NEW PHONE NUMBER ARIN'S PHONE [phone]
--- NOTE | 2020-04-08 19:22 | NUR ---
Pt resting in bed and on the vent. Report received from day shift. Pt was bathed and bed changed. No distress noted vitals stable at this time, skin intact. Pt position for comfort and bed in low position. Assessment to be done per flow sheet, will continue to monitor.
--- NOTE | 2020-04-08 21:17 | NUR ---
2nd IV placed in right wrist, 20ga and NG placed and placed on low intermittent suctiom.
[2020-04-09] VITALS (24 sets, daily range): BP systolic 83–112; BP diastolic 52–69; Ht 172.7 cm; Wt 88.2 kg
[2020-04-09 04:34] LABS: BASOPHILS 0 % (0-2); EOSINOPHILS 0 % (0-7); HEMATOCRIT 33.5 % (42.0-54.0); HEMOGLOBIN 11.2 g/dL (13.5-17.5); IMMATURE GRANULOCYTES 0.4 % (0-5); MCH 30.8 pg (26.0-34.0); MCHC 33.4 g/dL (31.0-37.0); MEAN PLATELET VOLUME 10.7 fL (7.4-10.4); MONOCYTES 3.7 % (2-11); NEUTROPHILS 84.9 % (40-80); PLATELET COUNT 100 10x3/uL (130-400); RBC 3.64 10x6/uL (4.20-6.10); RDW 13.4 % (11.5-14.5)
[2020-04-09 04:38] LABS: WBC 4.8 10x3/uL (4.8-10.8)
[2020-04-09 05:14] LABS: ALBUMIN 2.3 g/dL (3.4-5.0); ALKALINE PHOSPHATASE 40 U/L (30-120); ALT (SGPT) 34 U/L (10-68); BILIRUBIN - TOTAL 0.42 mg/dL (0.2-1.3); CALCIUM 7.1 mg/dL (8.5-10.1); CARBON DIOXIDE 25.6 mmol/L (21.0-32.0); CHLORIDE - SERUM 109 mmol/L (98-107); CREATININE - SERUM 1.1 mg/dL (0.6-1.3); MAGNESIUM - SERUM 2.1 mg/dL (1.8-2.4); POTASSIUM - SERUM 4.1 mmol/L (3.5-5.1); PROTEIN - SERUM 5.8 g/dL (6.4-8.2); SODIUM 142 mmol/L (136-145); eGFR NON AFRICAN AMERICAN 71 mL/min (90-120)
[2020-04-09 05:20] LABS: CALC OSMOLALITY 288 mosm/kg (275-300); CREATINE KINASE 360 UL (21-232); GLUCOSE 160 mg/dL (74-106); UREA NITROGEN 21 mg/dL (7-18)
[2020-04-09 05:21] LABS: CKMB 0.5 U/L (0.0-3.6)
--- NOTE | 2020-04-09 13:42 | NUR ---
Nutrition follow-up P now in ICU, intubated, sedated with propofol @ 10.3 ml/hr NPO NGT->LIWS labs reviewed Wt: 199# Will need nutrition support started within 24 hours Recommend Pulmocare @ 25 ml/hr with increase to goal rate of 50 ml/hr with 25 ml H2O flush q hour RDN following.
[2020-04-10] VITALS (24 sets, daily range): BP systolic 96–119; BP diastolic 46–65
[2020-04-10 03:48] LABS: BASOPHILS 0 % (0-2); EOSINOPHILS 0 % (0-7); HEMATOCRIT 33.7 % (42.0-54.0); HEMOGLOBIN 11.2 g/dL (13.5-17.5); IMMATURE GRANULOCYTES 0.2 % (0-5); LYMPHOCYTES 6.3 % (15-50); MCH 31.5 pg (26.0-34.0); MCHC 33.2 g/dL (31.0-37.0); MCV 94.7 fL (80.0-100.0); MEAN PLATELET VOLUME 10.3 fL (7.4-10.4); MONOCYTES 4.9 % (2-11); NEUTROPHILS 88.6 % (40-80); PLATELET COUNT 88 10x3/uL (130-400); RBC 3.56 10x6/uL (4.20-6.10); RDW 13.6 % (11.5-14.5); WBC 4.9 10x3/uL (4.8-10.8)
[2020-04-10 04:26] LABS: ALBUMIN 2.1 g/dL (3.4-5.0); ALKALINE PHOSPHATASE 38 U/L (30-120); ALT (SGPT) 33 U/L (10-68); BILIRUBIN - TOTAL 0.48 mg/dL (0.2-1.3); CALCIUM 7.8 mg/dL (8.5-10.1); CARBON DIOXIDE 26.1 mmol/L (21.0-32.0); CHLORIDE - SERUM 108 mmol/L (98-107); CREATINE KINASE 378 UL (21-232); MAGNESIUM - SERUM 2.6 mg/dL (1.8-2.4); PROTEIN - SERUM 5.9 g/dL (6.4-8.2); SODIUM 143 mmol/L (136-145); eGFR NON AFRICAN AMERICAN 80 mL/min (90-120)
[2020-04-10 04:32] LABS: CALC OSMOLALITY 299 mosm/kg (275-300); GLUCOSE 279 mg/dL (74-106); POTASSIUM - SERUM 4.9 mmol/L (3.5-5.1); UREA NITROGEN 27 mg/dL (7-18)
[2020-04-10 04:33] LABS: CKMB 1.1 U/L (0.0-3.6)
[2020-04-11] VITALS (23 sets, daily range): BP systolic 111–137; BP diastolic 61–79
[2020-04-11 06:08] LABS: HEMATOCRIT 32.7 % (42.0-54.0); HEMOGLOBIN 10.8 g/dL (13.5-17.5); LYMPHOCYTES 7.2 % (15-50); MCH 31.3 pg (26.0-34.0); MCV 94.8 fL (80.0-100.0); MEAN PLATELET VOLUME 9.7 fL (7.4-10.4); NEUTROPHILS 89.1 % (40-80); RBC 3.45 10x6/uL (4.20-6.10); RDW 13.3 % (11.5-14.5)
[2020-04-11 06:20] LABS: APTT 27.4 SECONDS (22.8-39.4); INR 1.29 (0.85-1.17)
[2020-04-11 06:36] LABS: ALKALINE PHOSPHATASE 38 U/L (30-120); ALT (SGPT) 28 U/L (10-68); BILIRUBIN - TOTAL 0.43 mg/dL (0.2-1.3); CALC OSMOLALITY 305 mosm/kg (275-300); CALCIUM 7.7 mg/dL (8.5-10.1); CARBON DIOXIDE 28.7 mmol/L (21.0-32.0); CHLORIDE - SERUM 113 mmol/L (98-107); GLUCOSE 252 mg/dL (74-106); LDH 428 U/L (85-227); MAGNESIUM - SERUM 2.8 mg/dL (1.8-2.4); POTASSIUM - SERUM 4.9 mmol/L (3.5-5.1); PROTEIN - SERUM 5.6 g/dL (6.4-8.2); SODIUM 146 mmol/L (136-145); UREA NITROGEN 28 mg/dL (7-18); eGFR NON AFRICAN AMERICAN 80 mL/min (90-120)
[2020-04-11 06:38] LABS: CREATINE KINASE 1451 UL (21-232)
[2020-04-11 06:39] LABS: CKMB 8.3 U/L (0.0-3.6)
[2020-04-11 06:46] LABS: PLATELET COUNT 119 10x3/uL (130-400); WBC 7.2 10x3/uL (4.8-10.8)
--- NOTE | 2020-04-11 11:09 | NUR ---
Nutrition follow-up: Pt intubated, sedated with propofol @ 20.6 ml/hr Pulmocare ordered to start; however, no feeding pump available at this time. Discussed in IDT meeting today re: delay of care Labs reviewed Wt: 199# Recommend Pulmocare at 25 ml/hr with goal rate of 40 ml/hr Flush with 25 ml H2O q hour RDN following.
--- NOTE | 2020-04-11 14:19 | NUR ---
DECREASE O2 65%
[2020-04-12] VITALS (22 sets, daily range): BP systolic 129–155; BP diastolic 77–91
[2020-04-12 05:24] LABS: BASOPHILS 0 % (0-2); EOSINOPHILS 0 % (0-7); HEMATOCRIT 33.1 % (42.0-54.0); HEMOGLOBIN 10.5 g/dL (13.5-17.5); IMMATURE GRANULOCYTES 0.7 % (0-5); LYMPHOCYTES 9.1 % (15-50); MCH 30.7 pg (26.0-34.0); MCHC 31.7 g/dL (31.0-37.0); MEAN PLATELET VOLUME 10.3 fL (7.4-10.4); MONOCYTES 3.3 % (2-11); NEUTROPHILS 86.9 % (40-80); PLATELET COUNT 115 10x3/uL (130-400); RBC 3.42 10x6/uL (4.20-6.10); RDW 13.8 % (11.5-14.5)
[2020-04-12 05:25] LABS: MCV 96.8 fL (80.0-100.0); WBC 4.5 10x3/uL (4.8-10.8)
[2020-04-12 05:55] LABS: ALBUMIN 1.9 g/dL (3.4-5.0); ALKALINE PHOSPHATASE 36 U/L (30-120); ALT (SGPT) 25 U/L (10-68); BILIRUBIN - TOTAL 0.54 mg/dL (0.2-1.3); CALC OSMOLALITY 306 mosm/kg (275-300); CALCIUM 7.7 mg/dL (8.5-10.1); CARBON DIOXIDE 28.3 mmol/L (21.0-32.0); CHLORIDE - SERUM 113 mmol/L (98-107); GLUCOSE 268 mg/dL (74-106); POTASSIUM - SERUM 5.2 mmol/L (3.5-5.1); PROTEIN - SERUM 5.5 g/dL (6.4-8.2); SODIUM 147 mmol/L (136-145); UREA NITROGEN 30 mg/dL (7-18); eGFR NON AFRICAN AMERICAN 80 mL/min (90-120)
[2020-04-13] VITALS (21 sets, daily range): BP systolic 107–162; BP diastolic 50–105
[2020-04-13 05:04] LABS: BASOPHILS 0.3 % (0-2); EOSINOPHILS 0 % (0-7); HEMATOCRIT 32.7 % (42.0-54.0); HEMOGLOBIN 10.3 g/dL (13.5-17.5); IMMATURE GRANULOCYTES 0.6 % (0-5); LYMPHOCYTES 7.3 % (15-50); MCH 30.6 pg (26.0-34.0); MCHC 31.5 g/dL (31.0-37.0); MEAN PLATELET VOLUME 10.4 fL (7.4-10.4); MONOCYTES 4.2 % (2-11); NEUTROPHILS 87.6 % (40-80); PLATELET COUNT 122 10x3/uL (130-400); RBC 3.37 10x6/uL (4.20-6.10); RDW 13.7 % (11.5-14.5); WBC 3.6 10x3/uL (4.8-10.8)
[2020-04-13 05:40] LABS: ANION GAP 13.8 mmol/L (8-16); CALCIUM 7.8 mg/dL (8.5-10.1); CARBON DIOXIDE 26.5 mmol/L (21.0-32.0); CREATININE - SERUM 1.1 mg/dL (0.6-1.3); PHOSPHOROUS 2.3 mg/dL (2.5-4.9); POTASSIUM - SERUM 5.3 mmol/L (3.5-5.1)
[2020-04-14] VITALS (15 sets, daily range): BP systolic 99–140; BP diastolic 55–86
[2020-04-14 05:25] LABS: CALC OSMOLALITY 304 mosm/kg (275-300); CALCIUM 7.4 mg/dL (8.5-10.1); CARBON DIOXIDE 27.1 mmol/L (21.0-32.0); CHLORIDE - SERUM 110 mmol/L (98-107); GLUCOSE 283 mg/dL (74-106); POTASSIUM - SERUM 5.7 mmol/L (3.5-5.1); SODIUM 144 mmol/L (136-145); UREA NITROGEN 34 mg/dL (7-18); eGFR NON AFRICAN AMERICAN 80 mL/min (90-120)
[2020-04-14 05:28] LABS: BASOPHILS 0 % (0-2); EOSINOPHILS 0.2 % (0-7); HEMATOCRIT 30.7 % (42.0-54.0); HEMOGLOBIN 9.7 g/dL (13.5-17.5); IMMATURE GRANULOCYTES 1.5 % (0-5); LYMPHOCYTES 9.5 % (15-50); MCH 31.1 pg (26.0-34.0); MCHC 31.6 g/dL (31.0-37.0); MCV 98.4 fL (80.0-100.0); MEAN PLATELET VOLUME 10.7 fL (7.4-10.4); MONOCYTES 5.7 % (2-11); NEUTROPHILS 83.1 % (40-80); PLATELET COUNT 140 10x3/uL (130-400); RBC 3.12 10x6/uL (4.20-6.10); RDW 13.5 % (11.5-14.5)
[2020-04-14 05:30] LABS: PHOSPHOROUS 3.4 mg/dL (2.5-4.9)
[2020-04-14 05:34] LABS: WBC 4.8 10x3/uL (4.8-10.8)
--- NOTE | 2020-04-14 09:17 | NUR ---
Nutrition follow-up: Intubated, sedated with propofol @ 20.6 ml/hr Pulmocare @ 10 ml/hr; goal rate 40 ml/hr Labs reviewed Wt: 185# RDN following.
[2020-04-15] VITALS (20 sets, daily range): BP systolic 113–143; BP diastolic 48–84
[2020-04-15 10:13] LABS: CALC OSMOLALITY 302 mosm/kg (275-300); CALCIUM 7.7 mg/dL (8.5-10.1); CARBON DIOXIDE 27.9 mmol/L (21.0-32.0); CHLORIDE - SERUM 111 mmol/L (98-107); CREATININE - SERUM 0.8 mg/dL (0.6-1.3); GLUCOSE 250 mg/dL (74-106); SODIUM 144 mmol/L (136-145); UREA NITROGEN 34 mg/dL (7-18); eGFR NON AFRICAN AMERICAN > 90 mL/min (90-120)
[2020-04-15 10:14] LABS: BASOPHILS 0 % (0-2); EOSINOPHILS 0 % (0-7); HEMOGLOBIN 10.1 g/dL (13.5-17.5); IMMATURE GRANULOCYTES 1.1 % (0-5); LYMPHOCYTES 5.6 % (15-50); MCH 30.5 pg (26.0-34.0); MCHC 31.6 g/dL (31.0-37.0); MCV 96.7 fL (80.0-100.0); MEAN PLATELET VOLUME 10.7 fL (7.4-10.4); MONOCYTES 4.6 % (2-11); NEUTROPHILS 88.7 % (40-80); PLATELET COUNT 132 10x3/uL (130-400); RBC 3.31 10x6/uL (4.20-6.10); RDW 13.1 % (11.5-14.5)
[2020-04-15 10:15] LABS: WBC 6.6 10x3/uL (4.8-10.8)
[2020-04-16] VITALS (24 sets, daily range): BP systolic 97–132; BP diastolic 43–80
--- NOTE | 2020-04-16 10:19 | NUR ---
Nutrition follow-up: Intubated, sedated with fentanyl no labs to review No BM per nurse Pulmocare infusing @ 20 ml/hr; pt has had some high residuals Recommend starting Reglan RDN following.
[2020-04-16 13:47] LABS: ALBUMIN 1.5 g/dL (3.4-5.0); ALKALINE PHOSPHATASE 45 U/L (30-120); ALT (SGPT) 38 U/L (10-68); BILIRUBIN - TOTAL 0.79 mg/dL (0.2-1.3); CALC OSMOLALITY 298 mosm/kg (275-300); CALCIUM 7.4 mg/dL (8.5-10.1); CARBON DIOXIDE 29.8 mmol/L (21.0-32.0); CHLORIDE - SERUM 108 mmol/L (98-107); CREATININE - SERUM 0.8 mg/dL (0.6-1.3); GLUCOSE 264 mg/dL (74-106); POTASSIUM - SERUM 4.9 mmol/L (3.5-5.1); PROTEIN - SERUM 5.3 g/dL (6.4-8.2); SODIUM 142 mmol/L (136-145); UREA NITROGEN 31 mg/dL (7-18); eGFR NON AFRICAN AMERICAN > 90 mL/min (90-120)
[2020-04-17] VITALS (24 sets, daily range): BP systolic 90–129; BP diastolic 53–87
[2020-04-17 05:49] LABS: BASOPHILS 0.1 % (0-2); EOSINOPHILS 0.1 % (0-7); HEMATOCRIT 28.8 % (42.0-54.0); HEMOGLOBIN 9.2 g/dL (13.5-17.5); IMMATURE GRANULOCYTES 1.8 % (0-5); LYMPHOCYTES 4.1 % (15-50); MCH 30.4 pg (26.0-34.0); MCHC 31.9 g/dL (31.0-37.0); MONOCYTES 4.5 % (2-11); NEUTROPHILS 89.4 % (40-80); RBC 3.03 10x6/uL (4.20-6.10); RDW 12.8 % (11.5-14.5)
[2020-04-17 06:16] LABS: PLATELET COUNT 102 10x3/uL (130-400); WBC 9.3 10x3/uL (4.8-10.8)
[2020-04-17 06:48] LABS: ALBUMIN 1.3 g/dL (3.4-5.0); ALKALINE PHOSPHATASE 49 U/L (30-120); ALT (SGPT) 34 U/L (10-68); BILIRUBIN - TOTAL 0.62 mg/dL (0.2-1.3); CALC OSMOLALITY 299 mosm/kg (275-300); CARBON DIOXIDE 25.9 mmol/L (21.0-32.0); CHLORIDE - SERUM 110 mmol/L (98-107); CREATININE - SERUM 0.7 mg/dL (0.6-1.3); GLUCOSE 268 mg/dL (74-106); POTASSIUM - SERUM 4.4 mmol/L (3.5-5.1); PROTEIN - SERUM 4.3 g/dL (6.4-8.2); SODIUM 143 mmol/L (136-145); UREA NITROGEN 29 mg/dL (7-18); eGFR NON AFRICAN AMERICAN > 90 mL/min (90-120)
[2020-04-17 07:07] LABS: CALCIUM 6.5 mg/dL (8.5-10.1)
--- NOTE | 2020-04-17 09:47 | NUR ---
PT'S AND BROTHER HAVE BOTH CALLED AND BEEN UPDATED ON PT'S STATUS.
--- NOTE | 2020-04-17 14:17 | NUR ---
CVL DRESSING CHANGED.
[2020-04-18] VITALS (25 sets, daily range): BP systolic 90–155; BP diastolic 51–73
[2020-04-18 04:24] LABS: BASOPHILS 0.1 % (0-2); EOSINOPHILS 0.1 % (0-7); HEMATOCRIT 31.1 % (42.0-54.0); IMMATURE GRANULOCYTES 1.5 % (0-5); LYMPHOCYTES 4.5 % (15-50); MCH 30.7 pg (26.0-34.0); MCHC 32.2 g/dL (31.0-37.0); MCV 95.4 fL (80.0-100.0); MEAN PLATELET VOLUME 11.2 fL (7.4-10.4); MONOCYTES 4.1 % (2-11); NEUTROPHILS 89.7 % (40-80); RBC 3.26 10x6/uL (4.20-6.10)
[2020-04-18 04:26] LABS: PLATELET COUNT 124 10x3/uL (130-400); WBC 12.2 10x3/uL (4.8-10.8)
[2020-04-18 04:45] LABS: ALBUMIN 1.6 g/dL (3.4-5.0); ALKALINE PHOSPHATASE 57 U/L (30-120); BILIRUBIN - TOTAL 0.62 mg/dL (0.2-1.3); CALC OSMOLALITY 295 mosm/kg (275-300); CALCIUM 7.6 mg/dL (8.5-10.1); CARBON DIOXIDE 27.5 mmol/L (21.0-32.0); CHLORIDE - SERUM 107 mmol/L (98-107); GLUCOSE 252 mg/dL (74-106); POTASSIUM - SERUM 4.6 mmol/L (3.5-5.1); SODIUM 140 mmol/L (136-145); UREA NITROGEN 34 mg/dL (7-18)
[2020-04-18 04:49] LABS: ALT (SGPT) 45 U/L (10-68); CREATININE - SERUM 0.9 mg/dL (0.6-1.3); PROTEIN - SERUM 5.5 g/dL (6.4-8.2); eGFR NON AFRICAN AMERICAN 90 mL/min (90-120)
--- NOTE | 2020-04-18 11:16 | NUR ---
Nutrition follow-up: Intubated, sedated Pumocare continues @ 20 ml/hr; pt not meeting estimated nutritional needs since admit Labs reviewed Wt: 187# Recommend advancing TF to goal rate of 40 ml/hr when medically feasible. RDN following.
--- NOTE | 2020-04-18 19:00 | NUR ---
KATIE MCCLENDON RN AND MYSELF RECIVED REPORT. TEAM CARE WILL BE GIVEN. PT IS INTUABTED/SEDATED. VSS. DROPLET ISOLATION OBSERVED. RESTRAINTS ARE OBSERVED AND EXTREMTIES ARE PINK AND WARM. KEY IS OBSERVED HANGING TO GRAVITY WITH YELLOW URINE. WILL PERFORM FULL ASSESSMENT AND DOC IN FLOWSHEET. BED IS LEFT LOW,SIDE RAILSX2,CALL LIGHT WITHINR EACH. WILL CONITNUE TO MONITOR
--- NOTE | 2020-04-18 19:35 | MORECARE ---
CASE MANAGEMENT DISCHARGE SUMMARY PATIENT: CATERINA BROWNING UNIT: [id number] ADM DATE: 04/06/20 AGE: 65 : 55 SEX: M ROOM/BED: D.2316 AUTHOR: PIETER SCHUMACHER PHYSICIAN: REFERRING PHYSICIAN: NALDO MANCIA DO DATE OF SERVICE: 04/18/20 Discharge Plan Patient Name: [facility]ATEIRNA BROWNING [facility] [facility] 1955 Planned Disposition: Home Anticipated Discharge Date: Discharge Date: Expected LOS: Initial Reviewer: [email or web address] Initial Review Date: 04/06/2020 Generated: 04/18/20 8:34 pm DCP- Discharge Planning Updated by [email or web address]: Estephania Augustine on 04/11/20 2:[address] Attempted to contact patient's , Halie @[phone], but VM is the only option. CM will attempt at a later time. Patient Name: CATERINA BROWNING Page 41855 at 1935 All edits/amendments must be made on the electronic document DICTATION DATE: 04/18/201933 SECTION HOUSEKEEPER: BRANDON 04/18/201933 RPT#: [id number] DC DATE: STATUS: ADM IN [facility] [address] [place] [address] END OF REPORT
--- NOTE | 2020-04-18 19:41 | MORECARE ---
CASE MANAGEMENT DISCHARGE SUMMARY PATIENT: CATERINA BROWNING UNIT: [id number] ADM DATE: 04/06/20 AGE: 65 : 55 SEX: M ROOM/BED: D.2316 AUTHOR: PIETER SCHUMACHER PHYSICIAN: REFERRING PHYSICIAN: NALDO MANCIA DO DATE OF SERVICE: 04/18/20 Discharge Plan Patient Name: CATERINA BROWNING Facility: [facility]:[place] : 1955 Planned Disposition: Home Anticipated Discharge Date: Discharge Date: Expected LOS: Initial Reviewer: [email or web address] Initial Review Date: 04/06/2020 Generated: 04/18/20 8:40 pm DCP- Discharge Planning Updated by [email or web address]: Estephania Augustine on 04/11/20 2:[address] Attempted to contact patient's , Cristofer @[phone], but VM is the only option. CM will attempt at a later time. DCPIA - Discharge Planning Initial Assessment Updated by [email or web address]: Becca Chacko on 04/18/20 7:39 pm * Is the patient Alert and Oriented? No * How many steps to enter\exit or inside your home? * PCP GAVINO * [facility] * Preadmission Environment Home with Family * ADLs Independent * List name and contact numbers for known caregivers / representatives who currently or will assist patient after discharge: CRISTOFER BROWNING [phone] * Verbal permission to speak to the caregivers and representatives has been obtained from the patient. N/A * Additional services required to return to the preadmission environment? No * Can the patient safely return to the preadmission environment? Yes * Has this patient been hospitalized within the prior 30 days at any hospital? No Last DP export: 04/18/20 6:35 p Patient Name: CATERINA BROWNING Page 43148 at 1941 All edits/amendments must be made on the electronic document DICTATION DATE: 04/18/201940 WIRE BRUSHER: BRANDON 04/18/201940 RPT#: [id number] DC DATE: STATUS: ADM IN [facility] [address] [place] [address] END OF REPORT
--- NOTE | 2020-04-18 19:48 | MORECARE ---
CASE MANAGEMENT DISCHARGE SUMMARY PATIENT: CATERINA BROWNING UNIT: [id number] ADM DATE: 04/06/20 AGE: 65 : 55 SEX: M ROOM/BED: D.2316 AUTHOR: WINSOME,DOC PHYSICIAN: REFERRING PHYSICIAN: NALDO MANCIA DO DATE OF SERVICE: 04/18/20 Discharge Plan Patient Name: CATERINA BROWNING Facility: [facility]:[place] : 1955 Planned Disposition: Home Anticipated Discharge Date: Discharge Date: Expected LOS: Initial Reviewer: [email or web address] Initial Review Date: 04/06/2020 Generated: 04/18/20 8:47 pm Comments DCP- Discharge Planning Updated by [email or web address]: Becca Chacko on 04/18/20 6:[address] Patient Name: CATERINA BROWNING Admission Status: ER Accout number: [id number] Admission Date: 04-06-2020 : 1955 Admission Diagnosis:COVID-19 Attending: NALDO MANCIA Current LOS: 12 Anticipated DC Date: Planned Disposition: Home Primary Insurance: [facility] MED[employer] SOLUTIONS Discharge Planning Comments: CM spoke with patient's Cristofer to complete initial dc planning assessment. CM educated patient on the CM role and verbal consent given by patient to complete assessment. Patient lives at home with family. Patient is independent. CM discussed availability of home health, rehab services, and medical equipment. Uncertain at this time what discharge needs or disposition will be. Patient will have family to transport home. CM will continue to follow and will assist as needed with dc plans/needs. Boat Dock Operator: Becca Chacko DCP- Discharge Planning Updated by [email or web address]: Estephania Augustine on 04/11/20 2:[address] Attempted to contact patient's , Cristofer @[phone], but VM is the only option. CM will attempt at a later time. DCPIA - Discharge Planning Initial Assessment Updated by [email or web address]: Becca Chacko on 04/18/20 7:46 pm * Is the patient Alert and Oriented? No * How many steps to enter\exit or inside your home? * PCP GAVINO * [facility] * Preadmission Environment Home with Family * ADLs Independent * Other Equipment cane, walker * List name and contact numbers for known caregivers / representatives who currently or will assist patient after discharge: CRISTOFER BROWNING [phone] * Verbal permission to speak to the caregivers and representatives has been obtained from the patient. N/A * Additional services required to return to the preadmission environment? No * Can the patient safely return to the preadmission environment? Yes * Has this patient been hospitalized within the prior 30 days at any hospital? No Last DP export: 04/18/20 6:41 p Patient Name: CATERINA BROWNING Page 33721 at 1948 All edits/amendments must be made on the electronic document DICTATION DATE: 04/18/201946 AUTOMOTIVE SERVICE MANAGER: BRANDON 04/18/201946 RPT#: [id number] DC DATE: STATUS: ADM IN [address] [place] [address] END OF REPORT
--- NOTE | 2020-04-18 23:00 | NUR ---
RE-ASSESSMENT COMPLETE. TURED FOR COMFORT. HEELS ARE BRIDGED OFF BED WITH HEEL PROTECTORS ON. VSS. ORAL CARE PROVIDED. BED IS LOW,SIDE RAISLX2,CALL LIGTH WITHIN REACH. WILL CONITNUE TO MONITOR
[2020-04-19] VITALS (25 sets, daily range): BP systolic 113–134; BP diastolic 57–69
[2020-04-19 05:33] LABS: BASOPHILS 0.1 % (0-2); EOSINOPHILS 0 % (0-7); HEMATOCRIT 28.6 % (42.0-54.0); HEMOGLOBIN 9.1 g/dL (13.5-17.5); IMMATURE GRANULOCYTES 1.9 % (0-5); LYMPHOCYTES 5.3 % (15-50); MCH 30.4 pg (26.0-34.0); MCHC 31.8 g/dL (31.0-37.0); MCV 95.7 fL (80.0-100.0); MEAN PLATELET VOLUME 10.7 fL (7.4-10.4); MONOCYTES 6.6 % (2-11); NEUTROPHILS 86.1 % (40-80); PLATELET COUNT 117 10x3/uL (130-400); RBC 2.99 10x6/uL (4.20-6.10); RDW 13.1 % (11.5-14.5); WBC 8.5 10x3/uL (4.8-10.8)
[2020-04-19 06:03] LABS: ALBUMIN 1.5 g/dL (3.4-5.0); ALKALINE PHOSPHATASE 68 U/L (30-120); BILIRUBIN - TOTAL 0.55 mg/dL (0.2-1.3); CALC OSMOLALITY 293 mosm/kg (275-300); CALCIUM 7.6 mg/dL (8.5-10.1); CHLORIDE - SERUM 105 mmol/L (98-107); CREATININE - SERUM 0.7 mg/dL (0.6-1.3); GLUCOSE 256 mg/dL (74-106); POTASSIUM - SERUM 4.8 mmol/L (3.5-5.1); SODIUM 139 mmol/L (136-145); UREA NITROGEN 31 mg/dL (7-18); eGFR NON AFRICAN AMERICAN > 90 mL/min (90-120)
[2020-04-19 06:09] LABS: ALT (SGPT) 73 U/L (10-68)
--- NOTE | 2020-04-19 07:10 | NUR ---
REPORT RECEIVED FROM GRAVEL HAULER AND PATIENT CARE ASSUMED BY TEAM NURSING TAINA ENCINAS, RN AND ANA LILIA MILLER RN. PATIENT LAYING IN BED ON LEFT SIDE ON VENT AC20, 02 95%, TV450 FIO2 100% P14. BP 121/61 HR 61 R19 T97.4. ABEL SOFT WRIST RESRAINTS IN PLACE, KEY CATHETER DRAINING CLEAR YELLOW URINE. SEE ASSESMENT FOR DETAILS. WILL CONTINUE WITH PLAN OF CARE. SR UPX 2 BED IN LOW POSITION AND CALL LIGHT IN REACH.
--- NOTE | 2020-04-19 19:05 | NUR ---
KATIE MCCLENDON RN AND MYSELF RECIVED SHIFT REPROT AND WILL BE CONDUCTING TEAM NURSING CARE FOR PT FOR THE REAMINDER OF SHIFT. PT IS INTUABTED/SEDATED, VSS. ISOALTION DROPLET OBSERVED. BILAT WRIST RESTRAINTS OBSERVED AND EXTREMTIES ARE PINK AND WARM. LEFT A-LINE RADIAL OBSERVED WITH WRIST PROTECTOR ON. NENITA IS HANGING TO GRAVITY WITH DARK YELLOW URINE. RIGHT IJ CDI, PULMICARE TUBE FEEDING IS GOING AT 20ML/HR. WILL PERFORM FULL ASSESSMENT AND DOC IN FLOWSHEET. IV MEDS SEE FLOWSHEET. HEEL PROTECTORS ARE ON BILAT. BED IS LOW,SIDE RIALSX2,CALL LIGHT WITHIN REACH. WILL CONITNUE TO MONITOR
--- NOTE | 2020-04-19 20:50 | NUR ---
PT CALLED, PASSWORD PROVIDED, UPDATE GIVEN AND ALL QUESTIONS ANSWERED.
[2020-04-20] VITALS (35 sets, daily range): BP systolic 74–141; BP diastolic 32–61
[2020-04-20 04:06] LABS: BASOPHILS 0.2 % (0-2); EOSINOPHILS 0.3 % (0-7); HEMATOCRIT 39.9 % (42.0-54.0); HEMOGLOBIN 12.8 g/dL (13.5-17.5); IMMATURE GRANULOCYTES 3.1 % (0-5); LYMPHOCYTES 6.2 % (15-50); MCH 30.3 pg (26.0-34.0); MCHC 32.1 g/dL (31.0-37.0); MCV 94.3 fL (80.0-100.0); MEAN PLATELET VOLUME 10.8 fL (7.4-10.4); MONOCYTES 5.9 % (2-11); NEUTROPHILS 84.3 % (40-80); PLATELET COUNT 94 10x3/uL (130-400); RBC 4.23 10x6/uL (4.20-6.10); RDW 13.2 % (11.5-14.5); WBC 6.1 10x3/uL (4.8-10.8)
[2020-04-20 04:21] LABS: PLATELET ESTIMATE DECREASED
[2020-04-20 04:25] LABS: ALBUMIN 1.4 g/dL (3.4-5.0); ALKALINE PHOSPHATASE 57 U/L (30-120); ALT (SGPT) 62 U/L (10-68); BILIRUBIN - TOTAL 0.51 mg/dL (0.2-1.3); CALC OSMOLALITY 282 mosm/kg (275-300); CALCIUM 7.7 mg/dL (8.5-10.1); CARBON DIOXIDE 31.2 mmol/L (21.0-32.0); CHLORIDE - SERUM 104 mmol/L (98-107); CREATININE - SERUM 0.6 mg/dL (0.6-1.3); POTASSIUM - SERUM 4.5 mmol/L (3.5-5.1); PROTEIN - SERUM 4.9 g/dL (6.4-8.2); SODIUM 137 mmol/L (136-145); UREA NITROGEN 26 mg/dL (7-18); eGFR NON AFRICAN AMERICAN > 90 mL/min (90-120)
[2020-04-20 04:27] LABS: GLUCOSE 175 mg/dL (74-106)
--- NOTE | 2020-04-20 09:38 | NUR ---
0700 REPORT RECIEVED AND CARE ASSUMED OF PATIENT.. SEE FLOW SHEET FOR SHIFT ASSESMENT FINDINGS.. CARE AND ASSESMENTY BY TEAM NURSING THAIS HUGHES RN AND MYSELF.. 0920 RECRUITMENT DONE WITH PATIENT VENTILATOR SETTING BY RT KANIKA DANG
--- NOTE | 2020-04-20 12:54 | NUR ---
"TUESDAY-TUESDAY" [phone] CALL EXTENSION [phone] FOR CRISTOFER BROWNING. AFTER 1599 CALL HER NORMAL PHONE TO REACH HER.
--- NOTE | 2020-04-20 14:09 | NUR ---
DR NEIL SPEAKING WITH PT . UPDATE GIVEN. WILL CONTINUE TO MONITOR
--- NOTE | 2020-04-20 17:27 | NUR ---
ATTEMPTED TO CALL REPORT TO MED 2. UNABLE TO REACH NURSE. WAITING ON HOLD
--- NOTE | 2020-04-20 18:24 | NUR ---
SPOKE WITH PT . UPDATED HER ON PT CONDITION AND CURRENT STATUS. DISCUSSED CODE STATUS ON PT. WANTS EVERYTHING DONE. PT CURRENTLY FULL CODE. WILL CONTINUE WITH FULL CODE STATUS.
--- NOTE | 2020-04-20 20:00 | NUR ---
SPOKE WITH DR. LINDSAY ABOUT BP. NEW ORDERS REC'D.
--- NOTE | 2020-04-20 21:58 | NUR ---
CALLED DR NEIL REGARDING INCREASED HR, DECREASED O2 SAT/ELEVATED RR. ABG'S REVIEWED, ORDERS RECEIVED.
--- NOTE | 2020-04-20 22:10 | NUR ---
CALLED PT , CRISTOFER BROWNING REGARDING CHANGE IN PT STATUS. ALL QUESTIONS ANSWERED.
--- NOTE | 2020-04-20 23:30 | NUR ---
DR NEIL NOTIFIED OF HEART RATE CONTINUING TO INCREASE AND O2 SAT CONTINUING TO DECREASE-CURRENTLY 63% ORDER RECEIVED.
[2020-04-21] VITALS: BP 79/49
--- NOTE | 2020-04-21 00:11 | NUR ---
PT NOW IN AFIB WITH RVR IN 180. PAGED DR. NEIL
[2020-04-21 00:15] VITALS: BP 84/47
--- NOTE | 2020-04-21 00:27 | NUR ---
PT , CRISTOFER NOTIFIED OF DETORIATING PT STATUS-WISHES TO MAKE PT A DNR AT THIS TIME, WITNESS FIDEL TALAVERA RN
--- NOTE | 2020-04-21 00:28 | NUR ---
DNR ORDER OBTAINED FROM DR NEIL PER PT FAMILY REQUEST.
--- NOTE | 2020-04-21 00:46 | NUR ---
DR NEIL NOTIFIED OF PT PASSING
--- NOTE | 2020-04-21 00:48 | NUR ---
DR LINDSAY NOTIFIED OF PT PASSING.
--- NOTE | 2020-04-21 01:01 | NUR ---
DR MASON HERE TO PRONOUNCE PT
--- NOTE | 2020-04-21 01:04 | NUR ---
NABIL NOTIFIED OF PT , RULED OUT FOR COVID-19. REFERENCE NUMBER [id number]
--- NOTE | 2020-04-21 01:26 | NUR ---
PT NOTIFIED OF PT PASSING, HOME INFORMATION OBTAINED AND PERMISSION GIVEN TO SEND PT BELONGINGS TO [facility] WITH PT.
--- NOTE | 2020-04-21 02:40 | NUR ---
PT PICKED UP BY [facility] REP
--- NOTE | 2020-04-21 18:42 | MORECARE ---
CASE MANAGEMENT DISCHARGE SUMMARY PATIENT: CATERINA BROWNING UNIT: [id number] ADM DATE: 04/06/20 AGE: 65 : 55 SEX: M ROOM/BED: D.2316 AUTHOR: PIETER SCHUMACHER PHYSICIAN: REFERRING PHYSICIAN: NALDO MANCIA DO DATE OF SERVICE: 04/21/20 Discharge Plan Patient Name: CATERINA BROWNING Facility: [facility]:[place] : 1955 Planned Disposition: Home Anticipated Discharge Date: Discharge Date: 04/21/2020 Expected LOS: Initial Reviewer: [email or web address] Initial Review Date: 04/06/2020 Generated: 04/21/20 7:41 pm Comments DCP- Discharge Planning Updated by [email or web address]: Becca Chacko on 04/18/20 6:[address] Patient Name: CATERINA BROWNING Admission Status: ER Accout number: [id number] Admission Date: 04-06-2020 : 1955 Admission Diagnosis:COVID-19 Attending: NALDO MANCIA Current LOS: 12 Anticipated DC Date: Planned Disposition: Home Primary Insurance: [facility] MEDICARE SOLUTIONS Discharge Planning Comments: CM spoke with patient's Cristofer to complete initial dc planning assessment. CM educated patient on the CM role and verbal consent given by patient to complete assessment. Patient lives at home with family. Patient is independent. CM discussed availability of home health, rehab services, and medical equipment. Uncertain at this time what discharge needs or disposition will be. Patient will have family to transport home. CM will continue to follow and will assist as needed with dc plans/needs. Cartographic Engineer: Becca Chacko DCP- Discharge Planning Updated by [email or web address]: Estephania Augustine on 04/11/20 2:[address] Attempted to contact patient's , Cristofer @[phone], but VM is the only option. CM will attempt at a later time. DCPIA - Discharge Planning Initial Assessment Updated by [email or web address]: Becca Chacko on 04/18/20 7:46 pm * Is the patient Alert and Oriented? No * How many steps to enter\exit or inside your home? * PCP GAVINO * [facility] * Preadmission Environment Home with Family * ADLs Independent * Other Equipment cane, walker * List name and contact numbers for known caregivers / representatives who currently or will assist patient after discharge: CRISTOFER BROWNING [phone] * Verbal permission to speak to the caregivers and representatives has been obtained from the patient. N/A * Additional services required to return to the preadmission environment? No * Can the patient safely return to the preadmission environment? Yes * Has this patient been hospitalized within the prior 30 days at any hospital? No Last DP export: 04/18/20 6:48 p Patient Name: CATERINA BROWNING Page 35106 at 1842 All edits/amendments must be made on the electronic document DICTATION DATE: 04/21/201840 EMPLOYEE COMMUNICATIONS SPECIALIST: BRANDON 04/21/201840 RPT#: [id number] DC DATE:04/21/20 STATUS: DIS IN [facility] [address] [place] [address] END OF REPORT
== END 2020-04-21 00:32 | DRG 207 ==
LOC: D.ER 09:46 → D.M2 14:12 → D.ICU 14:12
PROVIDERS: Emergency Medicine; Family Medicine; Internal Medicine Pulmonary Disease; ADMIT Family Medicine; ATTEND Family Medicine
PROC: 5A1955Z Respiratory Ventilation, Greater than 96 Consecutive Hours (ICD-10-PCS; principal; 2020-04-08)
PROC: 0BH17EZ Insertion of Endotracheal Airway into Trachea, Via Natural or Artificial Opening (ICD-10-PCS; 2020-04-08)
DX: U07.1 COVID-19 (principal); J12.89 Other viral pneumonia; J96.01 Acute respiratory failure with hypoxia; J96.02 Acute respiratory failure with hypercapnia; G93.41 Metabolic encephalopathy; R40.2124 Coma scale, eyes open, to pain, 24 hours or more after hospital admission; R40.2344 Coma scale, best motor response, flexion withdrawal, 24 hours or more after hospital admission; R40.2214 Coma scale, best verbal response, none, 24 hours or more after hospital admission; N17.9 Acute kidney failure, unspecified; D68.2 Hereditary deficiency of other clotting factors; D61.818 Other pancytopenia; R79.89 Other specified abnormal findings of blood chemistry; F03.90 Unspecified dementia, unspecified severity, without behavioral disturbance, psychotic disturbance, mood disturbance, and anxiety; D64.9 Anemia, unspecified; E11.65 Type 2 diabetes mellitus with hyperglycemia; Z72.0 Tobacco use; N40.0 Benign prostatic hyperplasia without lower urinary tract symptoms; R33.9 Retention of urine, unspecified